=== PATIENT | male | born 1950 ===

== ENCOUNTER 2024-08-29 10:54 | Inpatient (IN) | payer MEDICARE, OTHER, SELFPAY ==
[2024-08-29] VITALS (8 sets, daily range): BP systolic 108–133; BP diastolic 51–70; PULSE 59–60; RESP 12–20; TEMP 36.3–37; O2SAT 93–100; BMI 21.2
--- NOTE | ~2024-08-29 | CT_ITS ---
EXAMINATION: CT HEAD WITHOUT IV CONTRAST HISTORY: Fall on anticoagulation. TECHNIQUE: Unenhanced helical CT of the head was performed per standard departmental protocol. Coronal and sagittal reformats of the head were also evaluated. One or more of the following techniques was used for dose reduction: Automated exposure control, adjustment of the mA and/or kV according to patient size, use of iterative reconstruction technique. DLP: 791 mGy-cm COMPARISON: Comparison is made with the prior examination dated 08/29/2024. FINDINGS: BRAIN: There is diffuse prominence of the ventricular system and cortical sulci, consistent with atrophy. Periventricular and subcortical white matter hypodensities are noted which are nonspecific, but often seen in the setting of small vessel ischemic disease. There is no mass effect or midline shift. No intra- or extra-axial fluid collections are identified. SINUSES: The visualized paranasal sinuses are clear. The mastoid air cells and middle ear cavities are well pneumatized. ORBITS: The visualized orbits are unremarkable. BONES/SOFT TISSUES: The extracranial soft tissues are unremarkable. The calvarium is intact. No suspicious lytic or sclerotic lesions. CT/CT head/brain wo IV con IMPRESSION: No acute intracranial abnormality. Electronically signed by: Ilia Leonard MD 09/01/2024 10:23 AM EDT
--- NOTE | ~2024-08-29 | CT_ITS ---
EXAMINATION: CT HEAD WITHOUT CONTRAST CLINICAL INFORMATION: non focal generalized weakness, unsteady gait COMPARISON: None available. TECHNIQUE: Contiguous axial imaging was performed from the skull base to vertex without intravenous administration of contrast. This CT examination was performed using dose optimization techniques as appropriate, variously including the following: *Automated exposure control *Adjustment of mA and/or kV according to patient size (this includes techniques or standardized protocols for targeted exams where dose is matched to indication/reason for exam; i.e. extremities or head) *Use of iterative reconstruction technique DLP: 652 mGy-cm FINDINGS: There is CSF prominence of the in the inferior posterior cranial fossa just inferior and posterior to the fourth ventricle opening. No acute intracranial hemorrhage, mass effect, midline shift, hydrocephalus or herniation. Prominence of the extra-axial CSF spaces cerebral sulci and ventricles. Bilateral multifocal patchy deep periventricular white matter hypodensity. Burns-white matter differentiation is normal. Sellar/suprasellar region demonstrated no gross masses. Calcified plaques in the cavernous supracavernous segments both ICAs and V4 segments of the vertebral arteries. No air-fluid levels in the included paranasal sinuses. Tympanic cavities and mastoid cells are aerated. CT/CT head/brain wo IV con IMPRESSION: No acute intracranial hemorrhage. Small vessel occlusive disease. Global cerebral atrophy. Atherosclerosis disease. 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 Electronically signed by: Behzad Atkins MD 08/29/2024 03:15 PM EDT
--- NOTE | 2024-08-29 11:15 | ED.PSYCH ---
HPI - Psych General Chief Complaint: Psychiatric Symptoms Stated Complaint: SI ATTEMPT/OD OF ATIVAN LAST NOC,CALM/COOP PER EMS History of Present Illness ED Provider: Edwardo Linares MD HPI Narrative: [age] male self presenting via EMS called for help after he reported that he took numerous Valium tablets. Tells me he was suicidal took this at about 02:00. He tells me took about 40 tablets of 5 mg Valium. Has no other complaints at this time. Relevant PMH: The patient has had ambulation issues for several years at least 3 years undergoing extensive neurologic testing in [place] with a neurologist. To this date they have not received a neurologic diagnosis sounds like they are working with a ?psycho industrial trainer ?as they feel this may be secondary to psychiatric condition and/or medications. He has been walking with a cane and/or walker at home no recent falls but he is sometimes slightly unsteady. Related Data Home Medications ?Medication ?Instructions ?Recorded ?Confirmed allopurinol 300 mg tablet 150 mg PO DAILY 08/29/24 08/30/24 bupropion HCl 300 mg 24 hr tablet, 300 mg PO DAILY 08/29/24 08/29/24 extended release diazepam 5 mg tablet 5 mg PO DAILY PRN Sleep 08/29/24 08/29/24 aripiprazole 5 mg tablet 5 mg PO DAILY 08/30/24 08/30/24 docusate sodium 250 mg capsule 250 mg PO BID PRN Constipation 08/30/24 08/30/24 famotidine 20 mg tablet 20 mg PO BID 08/30/24 08/30/24 hydrochlorothiazide 50 mg tablet 50 mg PO DAILY 08/30/24 08/30/24 propranolol 60 mg capsule,24 60 mg PO DAILY 08/30/24 08/30/24 hr,extended release ropinirole 1 mg tablet 1 mg PO BEDTIME PRN Restless Leg(S) 08/30/24 08/30/24 Allergies Allergy/AdvReac Type Severity Reaction Status Date / Time lactose Allergy Diarrhea Verified 08/29/24 20:32 Penicillins Allergy Unknown Verified 08/29/24 11:10 [facility], [facility] Social History Social History Household Members: Spouse Housing: Apartment Do you presently have visiting nurse or other home services: No Alcohol intake: current Alcohol intake frequency: 0-2 drinks per day Alcohol type: hard liquor Patient Tobacco Use Status: Former Tobacco user Tobacco use type: Cigarette Smoked in Last 30 Days: No e-Cigarette/Vaping Use: Never Used Patient Interested in Nicotine Replacement: No Patient Given Instructions on How to Stop Smoking: No Second Hand Smoke Exposure: No Use of substances other than those prescribed or required for medical reasons: No Currently Displaying Signs/Symptoms of Drug Intoxication Withdrawal: No Have you been hit, kicked, punched, or otherwise hurt by someone within the past year? If so, by whom?: No Do you feel safe in your current relationship?: Yes Is there a partner from a previous relationship who is making you feel unsafe now?: No Are you made to feel afraid or neglected: No Spiritual Healthcare Practices: buddist Advance Directives: No Advance Directives Information Provided: Yes Do you have thoughts of harming others: None Do you have a plan to hurt others: No Plan Recently lost weight without trying: No How much weight loss: Not applicable Eating poorly because of decreased appetite: No Nutrition screen score: 0 Nutrition Risks: No Nutritional Risk Poor oral hygiene: No service: No Sexual orientation: Lesbian/[place]/Homosexual Physical Exam Vital Signs: Vital Signs: Last Vital Signs Temp 98.1 F 08/31/24 08:00 Pulse 68 08/31/24 08:00 Resp 18 08/31/24 08:00 BP 125/69 08/31/24 08:00 Pulse Ox 98 08/31/24 08:00 O2 Del Method Room Air 08/31/24 08:00 BMI result Body Mass Index 21.2 GENERAL: Well appearing. No apparent distress. Alert. HEAD/NECK: Normal to inspection. Neck supple. No cervical lymphadenopathy. EYES: Normal to inspection. Sclera non-icteric. ENMT: External nose normal. RESPIRATORY: Respiratory effort normal. Lungs clear to auscultation bilaterally. CARDIOVASCULAR: Regular rate. Normal rhythm. No murmur. No rubs. GI: Soft, non-tender, non-distended. No rebound or guarding. No masses palpable. No hepatosplenomegaly. SKIN: No jaundice. NEUROLOGICAL: Alert. PSYCHIATRIC: Alert. Appearance appropriate for situation. Attitude cooperative. Occasionally tearful. Endorses suicidal thoughts intentional overdose. Well-kempt clean. OTHER: Comprehensive Neuro exam: Face symmetric, tongue midline, strong symmetric eye closure, pupils symmetric and reactive to light, intact sensation to the face throughout, intact strong face deviation and shoulder shrug. Sensation intact to light touch throughout 5 out of 5 strength in bilateral upper extremities, 5 and 5 strength in lower extremities No gross ataxia of the extremities or trunk. Appearance of a subtle tremor of the head. He is slightly unsteady and requires walker with a slow slightly wide-based gait. Medications Administered Generic Name Dose Route Start Last Admin Trade Name Freq PRN Reason Stop Dose Admin Acetaminophen 650 mg 08/30/24 09:23 08/30/24 10:33 Acetaminophen 325 Mg Tablet PO 650 mg Q6H PRN Administration moderate pain Allopurinol 150 mg 08/30/24 11:30 08/31/24 08:23 Allopurinol 300 Mg Tablet PO 150 mg DAILY MISSY Administration Apixaban 5 mg 08/30/24 21:00 08/31/24 08:23 Apixaban 5 Mg Tablet PO 5 mg BID MISSY Administration Aripiprazole 5 mg 08/30/24 11:45 08/31/24 08:23 Aripiprazole 5 Mg Tablet PO 5 mg DAILY MISSY Administration Bupropion HCl 300 mg 08/30/24 09:30 08/31/24 08:23 Bupropion Hcl Xl 300 Mg Tab.Er.24h PO 300 mg DAILY MISSY Administration Famotidine 20 mg 08/30/24 21:00 08/31/24 08:23 Famotidine 20 Mg Tablet PO 20 mg BID MISSY Administration Hydrochlorothiazide 50 mg 08/31/24 09:00 08/31/24 08:23 Hydrochlorothiazide 50 Mg Tablet PO 50 mg DAILY MISSY Administration Protocol Propranolol HCl 60 mg 08/31/24 09:00 08/31/24 08:24 Propranolol Hcl La 60 Mg Cap.Sa.24h PO 60 mg DAILY MISSY Administration Protocol Discontinued Medications Generic Name Dose Route Start Last Admin Trade Name Freq PRN Reason Stop Dose Admin Cyanocobalamin 1,000 mcg 08/30/24 11:12 08/30/24 13:49 Cyanocobalamin (Vitamin B-12) 1,000 Mcg/Ml Vial IM 08/30/24 11:13 1,000 mcg ONCE ONE Administration Magnesium Oxide 800 mg 08/29/24 12:18 08/29/24 12:32 Magnesium Oxide 400 Mg Tablet PO 08/29/24 12:19 800 mg ONCE ONE Administration Potassium Chloride 40 meq 08/29/24 12:18 08/29/24 12:32 Potassium Chloride Packet 20 Meq Packet PO 08/29/24 12:19 40 meq ONCE ONE Administration Medical Decision Making Medical Decision Making MDM Narrative: Medical Decision Makin-year-old male with suicide attempt. Reports taking 40 tablets of 5 mg Valium at 02:00. He does not appear clinically sedated and I do have some suspicion he may not have taken this. The pill count in the bottle is discrepant with the amount he told me he took. Poison control consult for observation monitoring. Nonspecific intraventricular conduction delay. There was no comparison ECG. Repeat ECG without dynamic interval change. This purported ingestion would qualify as a severe high-risk ingestion with severe life-threatening benzodiazepine overdose Supplemented electrolytes as per poison recommendation. Patient based on timing develop no profound sedation medically cleared at approximately 14:30 Preliminary Favored Differential Diagnosis: Suicidality with suicide attempt, high-risk for suicide, depression, benzodiazepine overdose, among additional considered etiologies Testing Interpreted Independently: ECG : Nonspecific intraventricular conduction delay. No [place] criteriia.. Repeated without change Radiology or Lab testing Results Reviewed: No actionable findings. Positive benzodiazepine Consults: Care team social work behavioral health evaluation. Poison control over the phone through nursing. Independent Historians/External Chart Reviews: EMS. at the bedside Social Determinants of Health Impacting MDM/Planning: Not Applicable Lab Data 08/29/24 11:45 08/31/24 08:05 Labs: Lab Results 08/29/24 08/29/24 Range/Units 11:45 11:51 WBC 5.6 (4.8-10.8) X10*3/uL RBC 3.80 L (4.60-5.80) X10*6/uL Hgb 12.9 L (14.0-18.0) g/dl Hct 37.0 L (42.0-52.0) % MCV 97.4 (80.0-98.0) fL MCH 33.9 H (27.0-33.0) pg MCHC 34.9 (31.0-36.0) g/dl RDW 13.7 (11.0-16.0) % Plt Count 156 L (160-400) X10*3/uL MPV 9.0 L (9.4-12.4) fL Immature Gran % (Auto) 0.5 H (0.0-0.4) % Neut % (Auto) 42.9 L (45-73) % Lymph % (Auto) 33.7 (20-40) % Keith % (Auto) 12.1 H (2-11) % Eos % (Auto) 10.3 H (0-4) % Baso % (Auto) 0.5 (0-2) % Lymph # (Auto) 1.9 (1.2-4.9) X10*3/uL Keith # (Auto) 0.7 (0.1-1.2) X10*3/uL Eos # (Auto) 0.6 H (0.0-0.4) X10*3/uL Baso # (Auto) 0.0 (0.0-0.2) X10*3/uL Abs Immat Gran (auto) 0.03 (0.00-0.03) X10*3/uL Absolute Neuts (auto) 2.4 (2.0-8.3) x10*3/uL Absolute Nucleated RBC 0.000 (0.0-0.012) X10*3/uL Nucleated RBC % (auto) 0.0 (0.0-0.2) /100WBC Sodium 140 (135-145) mmol/L Potassium 3.8 (3.3-5.1) mmol/L Chloride 107 (96-108) mmol/L Carbon Dioxide 27 (22-29) mmol/L Anion Gap 10 L (12-20) BUN 14 (9-16) mg/dL Creatinine 1.28 (0.5-1.4) mg/dL Estim Creat Clear Calc 47.7 Estimated GFR 55 Random Glucose 96 (60-115) mg/dL Calcium 8.4 (8.4-10.2) mg/dL Magnesium 1.8 (1.6-2.6) mg/dL Total Bilirubin 0.4 (0.0-1.0) mg/dL AST 21 (5-37) U/L ALT 12 (0-40) U/L Alkaline Phosphatase 45 (39-117) U/L Total Protein 6.1 L (6.5-8.0) g/dL Albumin 3.3 L (3.5-5.0) g/dL Vitamin B12 < 148 L (200-900) pg/mL Folate 4.0 (> or = 4.0) ng/mL Urine Color Yellow Urine Appearance Clear Urine pH 6.5 (5.0-9.0) Ur Specific [place] 1.010 (1.005-1.025) Urine Protein Negative (Neg-Trace) mg/dL Urine Glucose (UA) Negative (Negative) mg/dL Urine Ketones Negative (Negative) mg/dL Urine Blood Negative (Negative) Urine Nitrite Negative (Negative) Ur Leukocyte Esterase Negative (Negative) Salicylates < 5.0 L (15-30) mg/dL Urine Opiates Screen Not Detected (Not Detect) Ur Buprenorphine Scrn Not Detected (Not Detect) ng/mL Ur Oxycodone Screen Not Detected (Not Detect) ng/mL Urine Methadone Screen Not Detected (Not Detect) ng/mL Urine Fentanyl Screen Not Detected (Not Detect) Acetaminophen < 3 (<30) mcg/mL Ur Barbiturates Screen Not Detected (Not Detect) Ur Phencyclidine Scrn Not Detected (Not Detect) Ur Amphetamines Screen Not Detected (Not Detect) U Benzodiazepines Scrn POSITIVE H (Not Detect) Urine Cocaine Screen Not Detected (Not Detect) U Marijuana (THC) Screen Not Detected (Not Detect) Ethyl Alcohol < 10 mg/dL Critical Care Time Critical Care Time Critical Care Time: Yes Total Critical Care Time: 30 Attestation: ED Critical Care: Authorized and Performed by: Edwardo Linares MD Total critical care time: Approximately 30 Due to a high probability of clinically significant, life threatening deterioration, the patient required my highest level of preparedness to intervene emergently and I personally spent this critical care time directly and personally managing the patient. This critical care time included obtaining a history; examining the patient; pulse oximetry; ordering and review of studies; arranging urgent treatment with development of a management plan; evaluation of patient's response to treatment; frequent reassessment; and, discussions with other providers. This critical care time was performed to assess and manage the high probability of imminent, life-threatening deterioration that could result in multi-organ failure. It was exclusive of separately billable procedures and treating other patients and teaching time. Discharge Plan Discharge Clinical Impression: Suicidal ideation, Intentional diazepam overdose Patient Disposition: Admitted As Inpatient Interventions: [place]-Suicide Risk Severity Scale Last Done: 08/31/24 00:00 Discharge Date/Time: 08/30/24 12:56
--- NOTE | 2024-08-29 11:16 | ECG_ITS ---
Test Reason : ETOH Blood Pressure : */* mmHG Vent. Rate : 61 BPM Atrial Rate : 61 BPM P-R Int : 268 ms QRS Dur : 184 ms QT Int : 478 ms P-R-T Axes : * -68 114 degrees QTcB Int : 481 ms AV dual-paced rhythm with prolonged AV conduction Abnormal ECG No previous ECGs available Referred By: Edwardo Linares Electronically Signed By: Bar Bernard
--- NOTE | 2024-08-29 11:18 | PC.NURSE ---
74 M presents to ED following reportedly consuming around 40, 5mg valium tablets last night. Pt denies HI at this time but states he doesn't want to live anymore. EMS stated says pt has had SI in the past, sees a therapist. Pt has a pacemaker in place and is on eliquis. Pt denies any pain. RR even and unlabored, denies SOB or CP. A+OX4, cooperative.
--- NOTE | 2024-08-29 11:45 | PC.NURSE ---
Spoke to poison control regarding patient treatment plan. Poison control recommends the following: ECG q2h x 3, monitor QRS duration, Monitor for CMS EXPERT depression and respiratory depression, check labs and optimize electrolytes with potassium 4+, magnesium 2+, calcium WNL. Provider notified.
[2024-08-29 11:49] LABS: MANUAL DIFF FLAG NO
--- NOTE | 2024-08-29 11:50 | MHC.EDTECH ---
pt 1 assisted with urinal d/t incontinence when attempting to use urinal by himself. urine and bloodwork collected and sent to lab
[2024-08-29 11:52] LABS: Hematocrit 37.0 % (42.0-52.0); Hemoglobin 12.9 g/dl (14.0-18.0); Imm Gran Abs Auto 0.03 X10*3/uL (0.00-0.03); Imm Gran Pct Auto 0.5 % (0.0-0.4); Lymphocytes Absolute Auto 1.9 X10*3/uL (1.2-4.9); Mean Corpuscular HGB Conc 34.9 g/dl (31.0-36.0); Mean Corpuscular Hemoglobin 33.9 pg (27.0-33.0); Mean Corpuscular Volume 97.4 fL (80.0-98.0); NRBC Abs Auto 0.000 X10*3/uL (0.0-0.012); NRBC Pct Auto 0.0 /100WBC (0.0-0.2); Platelet Count 156 X10*3/uL (160-400); Red Blood Count 3.80 X10*6/uL (4.60-5.80); White Blood Count 5.6 X10*3/uL (4.8-10.8)
[2024-08-29 11:59] LABS: Appearance Urine Clear; Glucose Urine UA Negative (Negative); PH 6.5 (5.0-9.0); Specific Gravity - Urine 1.010 (1.005-1.025)
[2024-08-29 12:06] LABS: Acetaminophen LAB < 3 mcg/mL (<30); Alanine Aminotransferase 12 U/L (0-40); Albumin Level 3.3 g/dL (3.5-5.0); Alkaline Phosphatase 45 U/L (39-117); Anion Gap 10 (12-20); Aspartate Amino Transferase 21 U/L (5-37); Blood Urea Nitrogen 14 mg/dL (9-16); Calcium 8.4 mg/dL (8.4-10.2); Carbon Dioxide 27 mmol/L (22-29); Chloride 107 mmol/L (96-108); Creatinine Clr Calc Pharmacy 47.7; Estimated Glomerular Filt Rate 55; Magnesium 1.8 mg/dL (1.6-2.6); Potassium 3.8 mmol/L (3.3-5.1); Salicylate < 5.0 mg/dL (15-30); Sodium 140 mmol/L (135-145); Total Protein 6.1 g/dL (6.5-8.0)
[2024-08-29 12:09] LABS: Cannabinoid Screen Urine Not Detected (Not Detect)
--- NOTE | 2024-08-29 12:16 | PC.NURSE ---
potassium 3.8, magnesium 1.8. Provider notified.
--- NOTE | 2024-08-29 12:31 | PC.NURSE ---
Pts Kyle took home pt's prescription bottle of diazepam.
[2024-08-29] MEDS: Potassium Chloride Packet 20 MEQ PACKET 40 MEQ PO (12:32)
--- NOTE | 2024-08-29 13:02 | MHC.EDTECH ---
pt urinated 200mL of pale yellow urine into urinal
--- NOTE | 2024-08-29 13:27 | PC.NURSE ---
Repeat EKG preformed and given to MD Carter.
--- NOTE | 2024-08-29 13:30 | ECG_ITS ---
Test Reason : QTC MONITORING Blood Pressure : */* mmHG Vent. Rate : 60 BPM Atrial Rate : 60 BPM P-R Int : 266 ms QRS Dur : 160 ms QT Int : 452 ms P-R-T Axes : -29 -66 142 degrees QTcB Int : 452 ms AV dual-paced rhythm with prolonged AV conduction Abnormal ECG When compared with ECG of 29-Aug-2024 11:27, No significant change was found Referred By: Edwardo Linares Electronically Signed By: Bar Bernard
--- NOTE | 2024-08-29 14:16 | MHC.EDTECH ---
Ambulation trial attempted, pt took two steps out of bed with one hand holding onto bed rail for assistance then became very unsteady. Pt was directed back to bed safely. Pt did state he does have moments of unsteadiness at baseline and does use mobility devices at home (walker, cane, rollator) when needed, RN was made aware.
--- NOTE | 2024-08-29 14:29 | PC.NURSE ---
Ambulation trial attempted by airframe technical officer. Pt was not able to walk and was unsteady when trying to stand up. Provider notified.
--- NOTE | 2024-08-29 14:44 | MHC.EDTECH ---
Pt attempted to use urinal independently, pt accidentally spilled urine on himself, full bed bath given, new hospital gown, linen, and warm blankets given. Pt placed back on soa integration developer resting comfortably in bed.
--- NOTE | 2024-08-29 14:50 | MHC.EDTECH ---
Pt transported to CT scan 1:1 still provided during scan
--- NOTE | 2024-08-29 15:10 | MHC.EDTECH ---
Pt assisted with bedpan for bowel movement. Kelly care given. Pt resting in bed
[2024-08-29 15:17] LABS: Folate 4.0 ng/mL (> or = 4.0); Vitamin B12 < 148 pg/mL (200-900)
--- NOTE | 2024-08-29 15:57 | PC.NURSE ---
CARE team at bedside
--- NOTE | 2024-08-29 16:47 | PC.NURSE ---
pt ambulated to bathroom with walker, a little unsteady, 1 assist. Pt was a little shaky but did ok.
[2024-08-30 06:00] VITALS: BP 119/59; PULSE 60; RESP 16; TEMP 36.2; O2SAT 100
[2024-08-30] MEDS: buPROPion HCl XL 300 MG TAB.ER.24H PO (10:33)
--- NOTE | 2024-08-30 11:07 | PHA.MEDREC ---
Addendum entered by Mac Solorzano [facility] 08/30/24 11:45: MED REC CHECKED BY [facility] Original Note: Pharmacy Consult ? Medication Reconciliation Pharmacy has completed the medication reconciliation. Spoke with pt, who was very pleasant, about med list brought in from home and pt stated that is a newer list that should be up to date . Pt confirmed he takes Eliquis 5mg tabs BID. Pt confirmed he is now taking the Ariprazole 5mg tab QD. Pt not sure if he still takes Diazepam or Ropinirole; kept them in med rec PRN since documented on pt med list. Pt states his Docusate 250mg tabs are BID PRN constipation.
[2024-08-30 12:00] VITALS: BP 116/58; PULSE 60; RESP 18; TEMP 36.7; O2SAT 98
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
--- NOTE | 2024-08-30 14:24 | PC.ADMIT ---
74 year old white male admitted from our ED at 1200 via wheelchair accompanied by his for a short term geriatric psych stay for Major Depression and Suicide Attempt to room 183-1. He is alert and oriented x4. He overdosed on Valium because he is overwhelmed by his physical problems with ambulation and self care issues. He is a poor historian, has a pacemaker for , Fainting while lying down. He did sign a CV and all of his SOHAM'S today. acid recovery operator completed. He has a faint rash on his back which he has a steroidal cream BID ordered at home, otherwise his skin is clear and intact. He is Lactose intolerant and his is willing to order him food from the [employer] for some meals because he is not too fond of the food here. He is also allergic to Penicillins. When asked about the survival of the suicide attempt he stated, There is part of me that is disappointed and part of me that is not, after his spouse left the room. He is incontinent of bowel and bladder and uses a walker or cane for ambulation when he is up to it. His weight was 147.2 pounds and his height is 5'11 . Vital signs 97.1-18-60-116/58 and O2 Sat 98% on room air. On arrival patient had an IV in his left arm which was removed. Nikki Mariscal NP verified orders. A Vit B12 injection was also given to him as ordered.
[2024-08-30 14:28] VITALS: BMI 20.5
[2024-08-30 20:00] VITALS: BP 138/63; PULSE 61; RESP 16; TEMP 36.6; O2SAT 95
[2024-08-31 07:00] VITALS: BMI 20.5
[2024-08-31 08:00] VITALS: BP 125/69; PULSE 68; RESP 18; TEMP 36.7; O2SAT 98
[2024-08-31 08:20] LABS: Hemoglobin A1C 143.3269 umol/L; Total Hemoglobin (HGBA1C) 3783.7500 umol/L
[2024-08-31] MEDS: buPROPion HCl XL 300 MG TAB.ER.24H PO (08:23)
[2024-08-31] MEDS: Propranolol HCL LA 60 MG CAP.SA.24H PO (08:24)
[2024-08-31 08:36] LABS: Alanine Aminotransferase 17 U/L (0-40); Albumin Level 3.9 g/dL (3.5-5.0); Alkaline Phosphatase 50 U/L (39-117); Anion Gap 10 (12-20); Aspartate Amino Transferase 21 U/L (5-37); Blood Urea Nitrogen 17 mg/dL (9-16); Calcium 9.2 mg/dL (8.4-10.2); Carbon Dioxide 26 mmol/L (22-29); Chloride 109 mmol/L (96-108); Cholesterol 199 mg/dL (<200); Creatinine Clr Calc Pharmacy 46.7; Estimated Glomerular Filt Rate 55; HDL Cholesterol 40 mg/dL (>40); Magnesium 2.0 mg/dL (1.6-2.6); Potassium 4.0 mmol/L (3.3-5.1); Sodium 141 mmol/L (135-145); Total Protein 7.1 g/dL (6.5-8.0); Triglycerides 173 mg/dL (<150)
[2024-08-31 08:51] LABS: Thyroid Stimulating Hormone 3.04 uIU/mL (0.32-4.0)
[2024-08-31 09:03] LABS: Folate 4.6 ng/mL (> or = 4.0)
--- NOTE | 2024-08-31 10:11 | P.CONHOSP_ITS ---
History of Present Illness Data of Consult Service Date: 08/31/24 Primary Care Provider: Letty Durant MD [facility] Reason for consult: Medical H&P 74-year-old male with a past medical history of complete heart block with a permanent pacemaker in 2017, nephrolithiasis, unspecified neurological disorder, paroxysmal AFib, HTN, Tremors presented to the ED after reportedly ingesting 40 tablets of 5 mg of Valium. After further investigation by ED staff, pill count in the bottle did not align with the number of pills he reported to have ingested. Ingesting this amount of Valium would qualify as a severe high risk ingestion with severe life-threatening overdose, poison control was contacted inpatient was monitored. His labs were within normal limits CBC and BMP within normal limits. His sedation level was monitored. EKG demonstrates a nonspecific intraventricular conduction delay, he does have a permanent pacemaker for complete heart block. On exam he has no concerns. He denies any shortness of breath or chest pain. Denies any dizziness lightheadedness or any other concerning symptoms. He is not sedated on exam, alert and answering questions appropriately. He is lying in bed resting in no apparent distress. Review of Systems 2 Review of Systems: Denies any shortness of breath, chest pain, dizziness, lightheadedness, abdominal pain or discomfort, nausea vomiting or diarrhea PMFSH Social History Household Members: Spouse Housing: Apartment Do you presently have visiting nurse or other home services: No Alcohol intake: current Alcohol intake frequency: 0-2 drinks per day Alcohol type: hard liquor Patient Tobacco Use Status: Former Tobacco user Tobacco use type: Cigarette Smoked in Last 30 Days: No e-Cigarette/Vaping Use: Never Used Patient Interested in Nicotine Replacement: No Patient Given Instructions on How to Stop Smoking: No Second Hand Smoke Exposure: No Use of substances other than those prescribed or required for medical reasons: No Currently Displaying Signs/Symptoms of Drug Intoxication Withdrawal: No Have you been hit, kicked, punched, or otherwise hurt by someone within the past year? If so, by whom?: No Do you feel safe in your current relationship?: Yes Is there a partner from a previous relationship who is making you feel unsafe now?: No Are you made to feel afraid or neglected: No Spiritual Healthcare Practices: buddist Advance Directives: No Advance Directives Information Provided: Yes Do you have thoughts of harming others: None Do you have a plan to hurt others: No Plan Recently lost weight without trying: No How much weight loss: Not applicable Eating poorly because of decreased appetite: No Nutrition screen score: 0 Nutrition Risks: No Nutritional Risk Poor oral hygiene: No service: No Sexual orientation: Lesbian/Escobedo/Homosexual Meds Allergies Allergy/AdvReac Type Severity Reaction Status Date / Time lactose Allergy Diarrhea Verified 08/29/24 20:32 Penicillins Allergy Unknown Verified 08/29/24 11:10 Active Medications: Current Medications Acetaminophen (Acetaminophen 325 Mg Tablet) 650 mg PO Q6H PRN PRN Reason: moderate pain Last Admin: 08/30/24 10:33 Dose: 650 mg Al Hydroxide/Mg Hydroxide (Magnesium Hydrox/Alum Hydrox 30 Ml Oral.Susp) 30 ml PO Q6H PRN PRN Reason: Heartburn/Nausea Allopurinol (Allopurinol 300 Mg Tablet) 150 mg PO DAILY [facility] Last Admin: 08/31/24 08:23 Dose: 150 mg Apixaban (Apixaban 5 Mg Tablet) 5 mg PO BID [facility] Last Admin: 08/31/24 08:23 Dose: 5 mg Aripiprazole (Aripiprazole 5 Mg Tablet) 5 mg PO DAILY [facility] Last Admin: 08/31/24 08:23 Dose: 5 mg Bupropion HCl (Bupropion Hcl Xl 300 Mg Tab.Er.24h) 300 mg PO DAILY [facility] Last Admin: 08/31/24 08:23 Dose: 300 mg Diazepam (Diazepam 5 Mg Tablet) 5 mg PO BEDTIME PRN PRN Reason: Sleep Docusate Sodium (Docusate Sodium 100 Mg/10 Ml Liquid) 250 mg PO BID PRN PRN Reason: Constipation Famotidine (Famotidine 20 Mg Tablet) 20 mg PO BID [facility] Last Admin: 08/31/24 08:23 Dose: 20 mg Hydrochlorothiazide (Hydrochlorothiazide 50 Mg Tablet) 50 mg PO DAILY [facility]; Protocol Last Admin: 08/31/24 08:23 Dose: 50 mg Magnesium Hydroxide (Milk Of Magnesia 30 Ml Oral.Susp) 30 ml PO DAILY PRN PRN Reason: Constipation Propranolol HCl (Propranolol Hcl La 60 Mg Cap.Sa.24h) 60 mg PO DAILY [facility]; Protocol Last Admin: 08/31/24 08:24 Dose: 60 mg Ropinirole HCl (Ropinirole Hcl 1 Mg Tablet) 1 mg PO BEDTIME PRN PRN Reason: Restless Leg(S) Trazodone HCl (Trazodone Hcl 50 Mg Tablet) 50 mg PO BEDTIME PRN PRN Reason: Insomnia Home Medications ?Medication ?Instructions ?Recorded ?Confirmed ?Last Taken ?Type allopurinol 300 mg tablet 150 mg PO DAILY 08/29/2411/16 Unknown History bupropion HCl 300 mg 24 hr tablet, 300 mg PO DAILY 10/1608/29/24 Unknown History extended release diazepam 5 mg tablet 5 mg PO DAILY PRN Sleep 10/1608/29/24 Unknown History aripiprazole 5 mg tablet 5 mg PO DAILY 08/30/2408/30 Unknown History docusate sodium 250 mg capsule 250 mg PO BID PRN Const ipation 08/30/24 08/30/24 Unknown History famotidine 20 mg tablet 20 mg PO BID 08/30/24 Unknown History hydrochlorothiazide 50 mg tablet 50 mg PO DAILY 08/30/24 Unknown History propranolol 60 mg capsule,24 60 mg PO DAILY 08/30/24 0 08/30/24 Unknown History hr,extended release ropinirole 1 mg tablet 1 mg PO BEDTIME PRN Restless Leg(S) 08/30/24 08/30/24 Unknown History Physical Exam 2 Vital Signs and Narrative: Vital Signs: Last Vital Signs Temp 98.1 F 08/31/24 08:00 Pulse 68 08/31/24 08:00 Resp 18 08/31/24 08:00 BP 125/69 08/31/24 08:00 Pulse Ox 98 08/31/24 08:00 O2 Del Method Room Air 08/31/24 08:00 BMI result Body Mass Index 20.5 Alert and oriented X3, able to give good history. Appears Frail. Neuro: CN II-X11 intact, no deficits, visual acuity intact EYES: PERRLA, EOM intact ENT: Hearing intact, lips moist Cardiac: S1 S2 RRR, No ectopy Pulmonary: Lungs clear to auscultation, No increased WOB. Abdominal: BS active in all 4 quadrants, no guarding or tenderness MSK: Strength 5/5 upper and lower extremities : Deferred Extremities: No edema in lower extremities. No calf tenderness. Gait steady with walker Psych: Mood stable, Quiet and cooperative. Skin: Warm and dry, Intact Results Labs 08/29/24 11:45 08/31/24 08:05 Labs: Laboratory Results - last 24 hr 08/31/24 08:05 Anion Gap 10 L Estim Creat Clear Calc 46.7 Estimated GFR 55 Random Glucose 103 Estimat Average Glucose 114 Hemoglobin A1c % 5.6 Calcium 9.2 D Magnesium 2.0 Total Bilirubin 0.4 AST 21 ALT 17 Alkaline Phosphatase 50 Total Protein 7.1 Albumin 3.9 Triglycerides 173 H Cholesterol 199 LDL Cholesterol, Calc 125 H HDL Cholesterol 40 L Folate 4.6 TSH 3.04 Assessment and Plan (1) Paroxysmal A-fib: Status: Acute Plan 74-year-old male with past medical history of depression, paroxysmal AFib, history of complete heart block now with permanent pacemaker, hypertension, functional neurological disorder, tremors, degenerative disc disease, chronic lower back pain and history of nephrolithiasis was admitted to the ED at [facility] after reportedly ingesting 40 tablets of 5 mg of Valium. Noted that the pill count in the bottle did not match with the amount he reportedly ingested. He is admitted to inpatient [facility] for continued care. Depression/SI with overdose of Valium Plan per psychiatric team Paroxysmal AFib Not on rate control medication On Eliquis Permanent pacemaker implanted 2016 for complete heart block Followed by [facility] Hypertension Continue propranolol Heart rate and blood pressure is stable Functional neurological disorder/tremors Negative workup for Parkinson's Improve with PT. Assist with ambulation as needed Degenerative disc disease, chronic lower back pain Tylenol as needed for pain Notify provider with any issues or concerns Nephrolithiasis Continues on hydrochlorothiazide and allopurinol for this Has had three previous procedures for stone removal. Thank you for allowing me to participate in the care of this patient. Will follow as needed. Please reconsult of any acute concerns or issues arise
[2024-08-31 11:49] LABS: Iron 97 mcg/dL (45-160); Percent Iron Saturation 47 % (15-50); Total Iron Binding Capacity 207 mcg/dL (228-428); Unsaturated Iron Binding 110 ug/dL
[2024-08-31 13:42] VITALS: PULSE 70; O2SAT 95
[2024-08-31 20:00] VITALS: BP 118/58; PULSE 60; RESP 18; TEMP 36.8; O2SAT 95
--- NOTE | 2024-08-31 21:01 | P.PNPSI_ITS ---
Subjective Subjective Date of Service: 08/31/24 Reason For Visit: SA Subjective Notes: Conditional Voluntary Interim History: Pt slept through the night. He reports feeling tired in the morning. this commercial real estate underwriter up dated him on conversation with his OP prescriber, Quinton Byrne. We discussed starting a new antidepressant, Lexapro, continuing wellbutrin and abilify. Mental Status Exam Mental Status Exam Narrative: Appearance: wearing hospital gown, fair hygine, sitting, mask like facial expression, neck tremor, in NAD Behavior: cooperative Psychomotor: mild resting tremor bilat. ambulating with walker Speech:clear, decrease verbal output, spontaneous TP: mostly linear TC: feeling depressed, hopeless Mood: depressed Affect: constricted SI: passive but no plan or intent HI: none VH/AH: none Delusions: no overt signs Insight/judgment: poor x 2. Memory/cog: alert, oriented to place, month, year and situation. pending MOCA/ACL. Diagnostics Vital Signs (24Hr): Vital Signs - 24 hr 08/31/24 08:00 08/31/24 13:42 08/31/24 20:00 Temperature 98.1 F 98.2 F Pulse Rate 68 70 60 Respiratory Rate 18 18 Blood Pressure 125/69 118/58 L Pulse Oximetry 98 95 95 Oxygen Delivery Method Room Air Room Air BMI result Body Mass Index 20.5 Labs 08/29/24 11:45 08/31/24 08:05 Labs: Laboratory Results - last 48 hr 08/31/24 08:05 Sodium 141 Potassium 4.0 Chloride 109 H Carbon Dioxide 26 Anion Gap 10 L BUN 17 H Creatinine 1.27 Estim Creat Clear Calc 46.7 Estimated GFR 55 Random Glucose 103 Estimat Average Glucose 114 Hemoglobin A1c % 5.6 Calcium 9.2 D Magnesium 2.0 Iron 97 TIBC 207 L % Saturation 47 Unsat Iron Binding 110 Total Bilirubin 0.4 AST 21 ALT 17 Alkaline Phosphatase 50 Total Protein 7.1 Albumin 3.9 Triglycerides 173 H Cholesterol 199 LDL Cholesterol, Calc 125 H HDL Cholesterol 40 L 25-OH Vitamin D Total 34.7 Folate 4.6 TSH 3.04 Imaging Radiology Impressions: ITS Impressions Head CT 08/29/24 14:46 IMPRESSION: No acute intracranial hemorrhage. Small vessel occlusive disease. Global cerebral atrophy. Atherosclerosis disease. 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 Electronically signed by: Behzad Atkins MD 08/29/2024 03:15 PM EDT RP Medications Medications Current Medications Acetaminophen (Acetaminophen 325 Mg Tablet) 650 mg PO Q6H PRN PRN Reason: moderate pain Last Admin: 08/30/24 10:33 Dose: 650 mg Al Hydroxide/Mg Hydroxide (Magnesium Hydrox/Alum Hydrox 30 Ml Oral.Susp) 30 ml PO Q6H PRN PRN Reason: Heartburn/Nausea Allopurinol (Allopurinol 300 Mg Tablet) 150 mg PO DAILY [facility] Last Admin: 08/31/24 08:23 Dose: 150 mg Apixaban (Apixaban 5 Mg Tablet) 5 mg PO BID [facility] Last Admin: 08/31/24 20:36 Dose: 5 mg Aripiprazole (Aripiprazole 5 Mg Tablet) 5 mg PO DAILY [facility] Last Admin: 08/31/24 08:23 Dose: 5 mg Bupropion HCl (Bupropion Hcl Xl 300 Mg Tab.Er.24h) 300 mg PO DAILY [facility] Last Admin: 08/31/24 08:23 Dose: 300 mg Cyanocobalamin (Cyanocobalamin (Vitamin B-12) 1,000 Mcg/Ml Vial) 1,000 mcg IM Q7D [facility] Stop: 09/27/24 07:01 Diazepam (Diazepam 5 Mg Tablet) 5 mg PO BEDTIME PRN PRN Reason: Sleep Docusate Sodium (Docusate Sodium 100 Mg/10 Ml Liquid) 250 mg PO BID PRN PRN Reason: Constipation Escitalopram Oxalate (Escitalopram Oxalate 10 Mg Tablet) 10 mg PO DAILY [facility] Last Admin: 08/31/24 11:24 Dose: 10 mg Famotidine (Famotidine 20 Mg Tablet) 20 mg PO BID [facility] Last Admin: 08/31/24 20:36 Dose: 20 mg Hydrochlorothiazide (Hydrochlorothiazide 50 Mg Tablet) 50 mg PO DAILY [facility]; Protocol Last Admin: 08/31/24 08:23 Dose: 50 mg Magnesium Hydroxide (Milk Of Magnesia 30 Ml Oral.Susp) 30 ml PO DAILY PRN PRN Reason: Constipation Propranolol HCl (Propranolol Hcl La 60 Mg Cap.Sa.24h) 60 mg PO DAILY [facility]; Protocol Last Admin: 08/31/24 08:24 Dose: 60 mg Ropinirole HCl (Ropinirole Hcl 1 Mg Tablet) 1 mg PO BEDTIME PRN PRN Reason: Restless Leg(S) Trazodone HCl (Trazodone Hcl 50 Mg Tablet) 50 mg PO BEDTIME PRN PRN Reason: Insomnia Allergies Allergies Allergy/AdvReac Type Severity Reaction Status Date / Time lactose Allergy Diarrhea Verified 08/29/24 20:32 Penicillins Allergy Unknown Verified 08/29/24 11:10 Assessment & Plan Assessment & Plan (1) Major depressive disorder, recurrent severe without psychotic features: Status: Acute Code(s): F33.2 - Major depressive disorder, recurrent severe without psychotic features Plan Mr. Saenz is a 74 year-old male with hx of depression who was brought via EMS after intentional OD on valium. Pt had reported taking 40 tablets of 5mg of valium. However, he did not have any signs of sedation or somnolence, nor further medical complications. Utox was positive for diazepam. Noted in the ED to have low B12 146, started on cyanocobalamine 1000mgc IM qweekly for 4 weeks. He has had a number of movement changes, including neck and hand tremors, frequent falls for the past 4 years. He has been for several years on wellbutrin and abilify. We discussed starting lexapro 10mg po daily and continuing wellbutrin 300mg po daily and abilify 5mg po daily. PLAN 1. continue tx. first dose of lexapro today. Reason for continued inpatient stay Substantial Risk for: inability to function Time Spent With Patient Time: Total time managing care of this patient today ____ minutes.
[2024-09-01 07:48] LABS: Glucose, Whole Blood 113 mg/dL (60-115)
--- NOTE | 2024-09-01 07:56 | PM.EVENT ---
Event Note Date of Service: 09/01/24 Time Spent With Patient Time: Total time managing care of this patient today ____ minutes.
[2024-09-01 08:00] VITALS: BP 142/59; PULSE 64; RESP 18; TEMP 36.1; O2SAT 99
--- NOTE | 2024-09-01 08:34 | PC.NURSE ---
Bharathi Saenz was found sitting on bathroom floor by [facility] Zeinab Romeo. It was unwitnessed fall and rapid response was called. Patient was assessed head to toe, by this RN and Dr. Alvarado. Also present was clinical coordinator Shazia Davis, Star Nicholas, Bibi Contreras and RN Pilar Peoples. Patient has no obvious signs of trauma, is AxOx4, PERRLA, VS paced rhythm 60 bpm, on Eliquis, BP 123/60, SpO2 96% on room air, RR 16 bpm. Blood glucos 113 mg/dL. Per patient report, he got up to go pee and forgot to use his walker, he felt unsteady and then fell to floor without head strike or LOC. Patient denies pain or dizziness. A routine head CT was ordered. patients physician Sirisha Mariscal was updated. patients Kyle France was updated.
--- NOTE | 2024-09-01 09:18 | P.PNIM_ITS ---
Subjective Subjective Date of Service: 09/01/24 Interval History: Patient was found sitting on bathroom floor. fall was unwitnessed and rapid response was called. No obvious signs of trauma on exam. Denies hitting his head, Patient denies pain or dizziness. Head CT performed with no acute intracranial abnormalities. On exam he is awake and alert, ambulating at baseline. Denies any joint pain, back pain. No visible injuries. His vitals have been stable. Review of Systems Denies any shortness of breath, chest pain, dizziness, lightheadedness, abdominal pain or discomfort, nausea vomiting or diarrhea Physical Exam 2 Vital Signs: Vital Signs: Last Vital Signs Temp 98.2 F 08/31/24 20:00 Pulse 60 08/31/24 20:00 Resp 18 08/31/24 20:00 BP 118/58 L 08/31/24 20:00 Pulse Ox 95 08/31/24 20:00 O2 Del Method Room Air 08/31/24 20:00 BMI result Body Mass Index 20.5 CONST: Alert and oriented, in NAD. Well nourished HEENT: Normocephalic, atraumatic, MMM, Eyes clear, Neck supple RESP: Lungs clear, RRR even and regular HEART:,RRR, S1, S2. No murmur, no edema GI:Abdomen Soft NT, ND. + BS times four :Deferred SKIN: Warm dry and intact, no visible lesions or rashes NEURO:CN II-XII Intact bilaterally, Sensation intact. Speech clear. Tremors continue, denies any paresthesias PSYCH: Normal affect Musculoskeletal: Full range of motion of bilateral arms and legs, no pain with palpation to any joint. Gait at baseline. No pain with palpation to spine Objective Data Active Medications Acetaminophen (Acetaminophen 325 Mg Tablet) 650 mg PO Q6H PRN PRN Reason: moderate pain Last Admin: 08/30/24 10:33 Dose: 650 mg Documented By: MATHEW Al Hydroxide/Mg Hydroxide (Magnesium Hydrox/Alum Hydrox 30 Ml Oral.Susp) 30 ml PO Q6H PRN PRN Reason: Heartburn/Nausea Allopurinol (Allopurinol 300 Mg Tablet) 150 mg PO DAILY [facility] Last Admin: 08/31/24 08:23 Dose: 150 mg Documented By: ARMIN Apixaban (Apixaban 5 Mg Tablet) 5 mg PO BID [facility] Last Admin: 08/31/24 20:36 Dose: 5 mg Documented By: JANAY Aripiprazole (Aripiprazole 5 Mg Tablet) 5 mg PO DAILY [facility] Last Admin: 08/31/24 08:23 Dose: 5 mg Documented By: ARMIN Bupropion HCl (Bupropion Hcl Xl 300 Mg Tab.Er.24h) 300 mg PO DAILY [facility] Last Admin: 08/31/24 08:23 Dose: 300 mg Documented By: ARMIN Cyanocobalamin (Cyanocobalamin (Vitamin B-12) 1,000 Mcg/Ml Vial) 1,000 mcg IM Q7D [facility] Stop: 09/27/24 07:01 Diazepam (Diazepam 5 Mg Tablet) 5 mg PO BEDTIME PRN PRN Reason: Sleep Docusate Sodium (Docusate Sodium 100 Mg/10 Ml Liquid) 250 mg PO BID PRN PRN Reason: Constipation Escitalopram Oxalate (Escitalopram Oxalate 10 Mg Tablet) 10 mg PO DAILY [facility] Last Admin: 08/31/24 11:24 Dose: 10 mg Documented By: ARMIN Famotidine (Famotidine 20 Mg Tablet) 20 mg PO BID [facility] Last Admin: 08/31/24 20:36 Dose: 20 mg Documented By: JANAY Hydrochlorothiazide (Hydrochlorothiazide 50 Mg Tablet) 50 mg PO DAILY [facility]; Protocol Last Admin: 08/31/24 08:23 Dose: 50 mg Documented By: ARMIN Magnesium Hydroxide (Milk Of Magnesia 30 Ml Oral.Susp) 30 ml PO DAILY PRN PRN Reason: Constipation Propranolol HCl (Propranolol Hcl La 60 Mg Cap.Sa.24h) 60 mg PO DAILY [facility]; Protocol Last Admin: 08/31/24 08:24 Dose: 60 mg Documented By: ARMIN Ropinirole HCl (Ropinirole Hcl 1 Mg Tablet) 1 mg PO BEDTIME PRN PRN Reason: Restless Leg(S) Trazodone HCl (Trazodone Hcl 50 Mg Tablet) 50 mg PO BEDTIME PRN PRN Reason: Insomnia Last Admin: 09/01/24 00:43 Dose: 50 mg Documented By: JANAY Labs 08/29/24 11:45 08/31/24 08:05 Labs: Laboratory Results - last 24 hr 08/31/24 09/01/24 08:05 07:44 POC Glucose 113 Iron 97 TIBC 207 L % Saturation 47 Unsat Iron Binding 110 25-OH Vitamin D Total 34.7 Assessment and Plan (1) Unwitnessed fall: Status: Acute Plan Depression/SI with overdose of Valium Plan per psychiatric team Fall without injury No evidence of injury on exam, patient at baseline CT head negative, no visible injuries Paroxysmal AFib Not on rate control medication On Eliquis Permanent pacemaker implanted 2016 for complete heart block Followed by [facility] Cardiology Hypertension Continue propranolol Heart rate and blood pressure is stable Functional neurological disorder/tremors Negative workup for Parkinson's. Followed by a neuro psychiatrist in [place] Improved with PT. Assist with ambulation as needed Degenerative disc disease, chronic lower back pain Tylenol as needed for pain Notify provider with any issues or concerns Nephrolithiasis Continue hydrochlorothiazide and allopurinol Has had three previous procedures for stone removal Quality Stroke Does the patient have a stroke diagnosis?: No VTE Prior VTE?: No VTE Risk Level:: Medical - low VTE Device Contraindication: Treatment Not Indicated VTE Drug Contraindication: Treatment Not Indicated
[2024-09-01 09:45] VITALS: BP 142/59; PULSE 64; RESP 18; TEMP 2.4; TEMP 36.4; O2SAT 99
[2024-09-01] MEDS: Propranolol HCL LA 60 MG CAP.SA.24H PO (09:54)
[2024-09-01] MEDS: buPROPion HCl XL 300 MG TAB.ER.24H PO (09:54)
--- NOTE | 2024-09-01 17:17 | HO.PSYCHPN ---
Subjective Subjective Date of Service: 09/01/24 Reason For Visit: SA Subjective Notes: Conditional Voluntary Interim History: Pt reports sleeping through the night. He denies plan or intent to end his life. He does report feeling very depressed. He is more optimistic. He has been to groups today. He is taking medications as prescribed. Note retropulsion when attempting to get up of couch. No psychosis/delusions. Review of Systems Review of Systems Denies any shortness of breath, chest pain, dizziness, lightheadedness, abdominal pain or discomfort, nausea vomiting or diarrhea Mental Status Exam Mental Status Exam Narrative: Appearance: wearing hospital gown, fair hygine, sitting, mask like facial expression, neck tremor, in NAD Behavior: cooperative Psychomotor: mild resting tremor bilat. ambulating with walker Speech:clear, decrease verbal output, spontaneous TP: mostly linear TC: feeling depressed, hopeless Mood: depressed Affect: constricted SI: passive but no plan or intent HI: none VH/AH: none Delusions: no overt signs Insight/judgment: poor x 2. Memory/cog: alert, oriented to place, month, year and situation. pending MOCA/ACL. Diagnostics Vital Signs (24Hr): Vital Signs - 24 hr 08/31/24 20:00 09/01/24 08:00 09/01/24 09:45 Temperature 98.2 F 97 F 36.4 F L Pulse Rate 60 64 64 Respiratory Rate 18 18 18 Blood Pressure 118/58 L 142/59 H 142/59 H Pulse Oximetry 95 99 99 Oxygen Delivery Method Room Air Room Air Room Air BMI result Body Mass Index 20.5 Labs 08/29/24 11:45 08/31/24 08:05 Labs: Laboratory Results - last 48 hr 08/31/24 09/01/24 08:05 07:44 Sodium 141 Potassium 4.0 Chloride 109 H Carbon Dioxide 26 Anion Gap 10 L BUN 17 H Creatinine 1.27 Estim Creat Clear Calc 46.7 Estimated GFR 55 POC Glucose 113 Random Glucose 103 Estimat Average Glucose 114 Hemoglobin A1c % 5.6 Calcium 9.2 D Magnesium 2.0 Iron 97 TIBC 207 L % Saturation 47 Unsat Iron Binding 110 Total Bilirubin 0.4 AST 21 ALT 17 Alkaline Phosphatase 50 Total Protein 7.1 Albumin 3.9 Triglycerides 173 H Cholesterol 199 LDL Cholesterol, Calc 125 H HDL Cholesterol 40 L 25-OH Vitamin D Total 34.7 Folate 4.6 TSH 3.04 Imaging Radiology Impressions: ITS Impressions Head CT 08/29/24 14:46 IMPRESSION: No acute intracranial hemorrhage. Small vessel occlusive disease. Global cerebral atrophy. Atherosclerosis disease. 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 Electronically signed by: Behzad Atkins MD 08/29/2024 03:15 PM EDT RP Head CT 09/01/24 09:39 IMPRESSION: No acute intracranial abnormality. Electronically signed by: Ilia Leonard MD 09/01/2024 10:23 AM EDT RP Medications Medications Current Medications Acetaminophen (Acetaminophen 325 Mg Tablet) 650 mg PO Q6H PRN PRN Reason: moderate pain Last Admin: 08/30/24 10:33 Dose: 650 mg Al Hydroxide/Mg Hydroxide (Magnesium Hydrox/Alum Hydrox 30 Ml Oral.Susp) 30 ml PO Q6H PRN PRN Reason: Heartburn/Nausea Allopurinol (Allopurinol 300 Mg Tablet) 150 mg PO DAILY [facility] Last Admin: 09/01/24 09:56 Dose: 150 mg Apixaban (Apixaban 5 Mg Tablet) 5 mg PO BID [facility] Last Admin: 09/01/24 09:54 Dose: 5 mg Aripiprazole (Aripiprazole 5 Mg Tablet) 5 mg PO DAILY [facility] Last Admin: 09/01/24 09:54 Dose: 5 mg Bupropion HCl (Bupropion Hcl Xl 300 Mg Tab.Er.24h) 300 mg PO DAILY [facility] Last Admin: 09/01/24 09:54 Dose: 300 mg Cyanocobalamin (Cyanocobalamin (Vitamin B-12) 1,000 Mcg/Ml Vial) 1,000 mcg IM Q7D [facility] Stop: 09/27/24 07:01 Diazepam (Diazepam 5 Mg Tablet) 5 mg PO BEDTIME PRN PRN Reason: Sleep Docusate Sodium (Docusate Sodium 100 Mg/10 Ml Liquid) 250 mg PO BID PRN PRN Reason: Constipation Escitalopram Oxalate (Escitalopram Oxalate 10 Mg Tablet) 10 mg PO DAILY [facility] Last Admin: 09/01/24 09:55 Dose: 10 mg Famotidine (Famotidine 20 Mg Tablet) 20 mg PO BID [facility] Last Admin: 09/01/24 09:56 Dose: 20 mg Hydrochlorothiazide (Hydrochlorothiazide 50 Mg Tablet) 50 mg PO DAILY [facility]; Protocol Last Admin: 09/01/24 09:55 Dose: 50 mg Magnesium Hydroxide (Milk Of Magnesia 30 Ml Oral.Susp) 30 ml PO DAILY PRN PRN Reason: Constipation Propranolol HCl (Propranolol Hcl La 60 Mg Cap.Sa.24h) 60 mg PO DAILY [facility]; Protocol Last Admin: 09/01/24 09:54 Dose: 60 mg Ropinirole HCl (Ropinirole Hcl 1 Mg Tablet) 1 mg PO BEDTIME PRN PRN Reason: Restless Leg(S) Trazodone HCl (Trazodone Hcl 50 Mg Tablet) 50 mg PO BEDTIME PRN PRN Reason: Insomnia Last Admin: 09/01/24 00:43 Dose: 50 mg Allergies Allergies Allergy/AdvReac Type Severity Reaction Status Date / Time lactose Allergy Diarrhea Verified 08/29/24 20:32 Penicillins Allergy Unknown Verified 08/29/24 11:10 Assessment & Plan Assessment & Plan (1) Major depressive disorder, recurrent severe without psychotic features: Status: Acute Code(s): F33.2 - Major depressive disorder, recurrent severe without psychotic features Plan Mr. Saenz is a 74 year-old male with hx of depression who was brought via EMS after intentional OD on valium. Pt had reported taking 40 tablets of 5mg of valium. However, he did not have any signs of sedation or somnolence, nor further medical complications. Utox was positive for diazepam. Noted in the ED to have low B12 146, started on cyanocobalamine 1000mgc IM qweekly for 4 weeks. He has had a number of movement changes, including neck and hand tremors, frequent falls for the past 4 years. He has been for several years on wellbutrin and abilify. We discussed starting lexapro 10mg po daily and continuing wellbutrin 300mg po daily and abilify 5mg po daily. PLAN 09/01 continue tx. lexapro 10mg po daily, wellbutrin 300mg po daily and abilify 5mg po daily. Reason for continued inpatient stay Substantial Risk for: inability to function Time Spent With Patient Time: Total time managing care of this patient today ____ minutes.
[2024-09-01 21:10] VITALS: BP 132/64; PULSE 60; RESP 16; TEMP 36.2; O2SAT 96
[2024-09-02 07:55] VITALS: BP 132/62; PULSE 61; RESP 18; TEMP 36.6; O2SAT 97
[2024-09-02] MEDS: Propranolol HCL LA 60 MG CAP.SA.24H PO (08:54)
[2024-09-02] MEDS: buPROPion HCl XL 300 MG TAB.ER.24H PO (08:55)
--- NOTE | 2024-09-02 12:11 | PC.NURSE ---
At 11am recieved call from requesting to enter for visit , it was explained that we had a bit of jesus due to having an incident on the unit that held up the prior visit. He then curtly said to me I', on time for my visit and I expect to be let in. This is against my rights I again apoligized for delay. He then stated I will be filing a complaint with the patient advocate . I then said someone will be out as soon as possible and conversation was ended
[2024-09-02 20:00] VITALS: BP 155/67; PULSE 60; RESP 16; TEMP 35.8; O2SAT 95
--- NOTE | 2024-09-02 23:40 | P.PNPSI_ITS ---
Subjective Subjective Date of Service: 09/02/24 Reason For Visit: SA Subjective Notes: Conditional Voluntary Interim History: Medical record and nursing notes reviewed; case discussed during rounds with team/nursing staff, and met with patient for supportive therapy/psychoeducation, as well as medication management. Met with patient in bed when he was with one-to-one observation. Per nursing he slept well last night, was medication compliant. Denies side effects. Reports mood is good . Appetite is so-so. Denies SI and other safety concerns. Denies voices. Patient had a unwitnessed fall yesterday. One-to-one was DC'd/ place him on 5 minute checks. Ambulate with a walker, have a visit with significant order this morning. Medication Compliance: Yes Side effects from medications: No Attending Groups: No Review of Systems Acute medical concerns: No Medical Review of Systems: unchanged Review of Systems Review of Systems Denies any shortness of breath, chest pain, dizziness, lightheadedness, abdominal pain or discomfort, nausea vomiting or diarrhea Yes all other systems are reviewed and are negative Mental Status Exam Mental Status Exam Narrative: Appearance: wearing clothing, fair hygine, sitting, mask like facial expression, neck tremor not observed as he is in bed, in NAD Behavior: cooperative, calm Psychomotor: ambulating with walker Speech:clear, decrease verbal output, spontaneous TP: mostly linear TC: feeling depressed, hopeless Mood: good Affect: constricted SI: Denies HI: none VH/AH: none Delusions: no overt signs Insight/judgment: poor x 2. Memory/cog: alert, oriented to place, month, year and situation. pending MOCA/ACL. Diagnostics Vital Signs (24Hr): Vital Signs - 24 hr 09/02/24 07:55 09/02/24 20:00 Temperature 97.9 F 96.5 F L Pulse Rate 61 60 Respiratory Rate 18 16 Blood Pressure 132/62 155/67 H Pulse Oximetry 97 95 Oxygen Delivery Method Room Air Room Air BMI result Body Mass Index 20.5 Labs 08/29/24 11:45 08/31/24 08:05 Labs: Laboratory Results - last 48 hr 09/01/24 07:44 POC Glucose 113 Imaging Radiology Impressions: ITS Impressions Head CT 08/29/24 14:46 IMPRESSION: No acute intracranial hemorrhage. Small vessel occlusive disease. Global cerebral atrophy. Atherosclerosis disease. 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 Electronically signed by: Behzad Atkins MD 08/29/2024 03:15 PM EDT RP Head CT 09/01/24 09:39 IMPRESSION: No acute intracranial abnormality. Electronically signed by: Ilia Leonard MD 09/01/2024 10:23 AM EDT RP Medications Medications Current Medications Acetaminophen (Acetaminophen 325 Mg Tablet) 650 mg PO Q6H PRN PRN Reason: moderate pain Last Admin: 08/30/24 10:33 Dose: 650 mg Al Hydroxide/Mg Hydroxide (Magnesium Hydrox/Alum Hydrox 30 Ml Oral.Susp) 30 ml PO Q6H PRN PRN Reason: Heartburn/Nausea Allopurinol (Allopurinol 300 Mg Tablet) 150 mg PO DAILY [facility] Last Admin: 09/02/24 08:53 Dose: 150 mg Apixaban (Apixaban 5 Mg Tablet) 5 mg PO BID [facility] Last Admin: 09/02/24 20:48 Dose: 5 mg Aripiprazole (Aripiprazole 5 Mg Tablet) 5 mg PO DAILY [facility] Last Admin: 09/02/24 08:54 Dose: 5 mg Bupropion HCl (Bupropion Hcl Xl 300 Mg Tab.Er.24h) 300 mg PO DAILY [facility] Last Admin: 09/02/24 08:55 Dose: 300 mg Cyanocobalamin (Cyanocobalamin (Vitamin B-12) 1,000 Mcg/Ml Vial) 1,000 mcg IM Q7D [facility] Stop: 09/27/24 07:01 Diazepam (Diazepam 5 Mg Tablet) 5 mg PO BEDTIME PRN PRN Reason: Sleep Docusate Sodium (Docusate Sodium 100 Mg/10 Ml Liquid) 250 mg PO BID PRN PRN Reason: Constipation Escitalopram Oxalate (Escitalopram Oxalate 10 Mg Tablet) 10 mg PO DAILY [facility] Last Admin: 09/02/24 08:55 Dose: 10 mg Famotidine (Famotidine 20 Mg Tablet) 20 mg PO DAILY [facility] Hydrochlorothiazide (Hydrochlorothiazide 50 Mg Tablet) 50 mg PO DAILY [facility]; Protocol Last Admin: 09/02/24 08:54 Dose: 50 mg Magnesium Hydroxide (Milk Of Magnesia 30 Ml Oral.Susp) 30 ml PO DAILY PRN PRN Reason: Constipation Propranolol HCl (Propranolol Hcl La 60 Mg Cap.Sa.24h) 60 mg PO DAILY [facility]; Protocol Last Admin: 09/02/24 08:54 Dose: 60 mg Ropinirole HCl (Ropinirole Hcl 1 Mg Tablet) 1 mg PO BEDTIME PRN PRN Reason: Restless Leg(S) Trazodone HCl (Trazodone Hcl 50 Mg Tablet) 50 mg PO BEDTIME PRN PRN Reason: Insomnia Last Admin: 09/01/24 00:43 Dose: 50 mg Allergies Allergies Allergy/AdvReac Type Severity Reaction Status Date / Time lactose Allergy Diarrhea Verified 08/29/24 20:32 Penicillins Allergy Unknown Verified 08/29/24 11:10 Assessment & Plan Assessment & Plan (1) Major depressive disorder, recurrent severe without psychotic features: Status: Acute Code(s): F33.2 - Major depressive disorder, recurrent severe without psychotic features Plan Mr. Saenz is a 74 year-old male with hx of depression who was brought via EMS after intentional OD on valium. Pt had reported taking 40 tablets of 5mg of valium. However, he did not have any signs of sedation or somnolence, nor further medical complications. Utox was positive for diazepam. Noted in the ED to have low B12 146, started on cyanocobalamine 1000mgc IM qweekly for 4 weeks. He has had a number of movement changes, including neck and hand tremors, frequent falls for the past 4 years. He has been for several years on wellbutrin and abilify. We discussed starting lexapro 10mg po daily and continuing wellbutrin 300mg po daily and abilify 5mg po daily. PLAN 09/01 continue tx. lexapro 10mg po daily, wellbutrin 300mg po daily and abilify 5mg po daily. 09/02/24: Reports good sleep last night, appetite was so so. Mood is good . Compliant with medication. He has a for unwitnessed yesterday. He was placed on one-to-one. Taken off and place on 5 minute checks. Have visit with a partner in the morning. No for episode this wanting. Denies side effects from medication. Denies Other safety concerns. Denies hallucinations. Patient educated on: medication risk/benefits Informed Consent: understands Reason for continued inpatient stay Substantial Risk for: med/psych decompensation Time Spent With Patient Time: Total time managing care of this patient today ____ minutes.
[2024-09-03 07:50] VITALS: BP 127/62; PULSE 64; RESP 18; TEMP 36.8; O2SAT 97
[2024-09-03] MEDS: Propranolol HCL LA 60 MG CAP.SA.24H PO (08:15)
[2024-09-03] MEDS: buPROPion HCl XL 300 MG TAB.ER.24H PO (08:16)
--- NOTE | 2024-09-03 14:08 | HO.PSYCHPN ---
Subjective Subjective Date of Service: 09/03/24 Reason For Visit: SA Subjective Notes: Conditional Voluntary Interim History: Medical record and nursing notes reviewed; case discussed during rounds with team/nursing staff, and met with patient for supportive therapy/psychoeducation, as well as medication management. Patient reports slept well, has no appetite issues. Compliant with medications, denies side effects. Ambulate slowly the muniz with the walker, nursing staff is when he is ambulate. Calm, pleasant, and cooperative.. Denies safety concerns. Per nursing, his partner is difficult. Medication Compliance: Yes Side effects from medications: No Attending Groups: Yes Review of Systems Acute medical concerns: No Medical Review of Systems: unchanged Review of Systems Review of Systems Denies any shortness of breath, chest pain, dizziness, lightheadedness, abdominal pain or discomfort, nausea vomiting or diarrhea Yes all other systems are reviewed and are negative Mental Status Exam Mental Status Exam Narrative: Appearance: wearing clothing, fair hygine, sitting, mask like facial expression, neck tremor not observed as he is in bed, in NAD Behavior: cooperative, calm Psychomotor: ambulating with walker Speech:clear, decrease verbal output, spontaneous TP: mostly linear TC: more positive, calm, Mood: good Affect: constricted SI: Denies HI: none VH/AH: none Delusions: no overt signs Insight/judgment: poor x 2. Memory/cog: alert, oriented to place, month, year and situation. pending MOCA/ACL. Diagnostics Vital Signs (24Hr): Vital Signs - 24 hr 09/02/24 20:00 09/03/24 07:50 Temperature 96.5 F L 98.2 F Pulse Rate 60 64 Respiratory Rate 16 18 Blood Pressure 155/67 H 127/62 Pulse Oximetry 95 97 Oxygen Delivery Method Room Air Room Air BMI result Body Mass Index 20.5 Labs 08/29/24 11:45 08/31/24 08:05 Imaging Radiology Impressions: ITS Impressions Head CT 08/29/24 14:46 IMPRESSION: No acute intracranial hemorrhage. Small vessel occlusive disease. Global cerebral atrophy. Atherosclerosis disease. 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 Electronically signed by: Behzad Atkins MD 08/29/2024 03:[address] 09/01/24 09:39 IMPRESSION: No acute intracranial abnormality. Electronically signed by: Ilia Leonard MD 09/01/2024 10:23 AM EDT RP Medications Medications Current Medications Acetaminophen (Acetaminophen 325 Mg Tablet) 650 mg PO Q6H PRN PRN Reason: moderate pain Last Admin: 08/30/24 10:33 Dose: 650 mg Al Hydroxide/Mg Hydroxide (Magnesium Hydrox/Alum Hydrox 30 Ml Oral.Susp) 30 ml PO Q6H PRN PRN Reason: Heartburn/Nausea Allopurinol (Allopurinol 300 Mg Tablet) 150 mg PO DAILY [facility] Last Admin: 09/03/24 08:16 Dose: 150 mg Apixaban (Apixaban 5 Mg Tablet) 5 mg PO BID [facility] Last Admin: 09/03/24 08:16 Dose: 5 mg Aripiprazole (Aripiprazole 5 Mg Tablet) 5 mg PO DAILY [facility] Last Admin: 09/03/24 08:16 Dose: 5 mg Bupropion HCl (Bupropion Hcl Xl 300 Mg Tab.Er.24h) 300 mg PO DAILY [facility] Last Admin: 09/03/24 08:16 Dose: 300 mg Cyanocobalamin (Cyanocobalamin (Vitamin B-12) 1,000 Mcg/Ml Vial) 1,000 mcg IM Q7D [facility] Stop: 09/27/24 07:01 Diazepam (Diazepam 5 Mg Tablet) 5 mg PO BEDTIME PRN PRN Reason: Sleep Docusate Sodium (Docusate Sodium 100 Mg/10 Ml Liquid) 250 mg PO BID PRN PRN Reason: Constipation Escitalopram Oxalate (Escitalopram Oxalate 10 Mg Tablet) 10 mg PO DAILY [facility] Last Admin: 09/03/24 08:16 Dose: 10 mg Famotidine (Famotidine 20 Mg Tablet) 20 mg PO DAILY [facility] Last Admin: 09/03/24 08:16 Dose: 20 mg Hydrochlorothiazide (Hydrochlorothiazide 50 Mg Tablet) 50 mg PO DAILY [facility]; Protocol Last Admin: 09/03/24 08:16 Dose: 50 mg Magnesium Hydroxide (Milk Of Magnesia 30 Ml Oral.Susp) 30 ml PO DAILY PRN PRN Reason: Constipation Propranolol HCl (Propranolol Hcl La 60 Mg Cap.Sa.24h) 60 mg PO DAILY [facility]; Protocol Last Admin: 09/03/24 08:15 Dose: 60 mg Ropinirole HCl (Ropinirole Hcl 1 Mg Tablet) 1 mg PO BEDTIME PRN PRN Reason: Restless Leg(S) Trazodone HCl (Trazodone Hcl 50 Mg Tablet) 50 mg PO BEDTIME PRN PRN Reason: Insomnia Last Admin: 09/01/24 00:43 Dose: 50 mg Allergies Allergies Allergy/AdvReac Type Severity Reaction Status Date / Time lactose Allergy Diarrhea Verified 08/29/24 20:32 Penicillins Allergy Unknown Verified 08/29/24 11:10 Assessment & Plan Assessment & Plan (1) Major depressive disorder, recurrent severe without psychotic features: Status: Acute Code(s): F33.2 - Major depressive disorder, recurrent severe without psychotic features Plan Mr. Saenz is a 74 year-old male with hx of depression who was brought via EMS after intentional OD on valium. Pt had reported taking 40 tablets of 5mg of valium. However, he did not have any signs of sedation or somnolence, nor further medical complications. Utox was positive for diazepam. Noted in the ED to have low B12 146, started on cyanocobalamine 1000mgc IM qweekly for 4 weeks. He has had a number of movement changes, including neck and hand tremors, frequent falls for the past 4 years. He has been for several years on wellbutrin and abilify. We discussed starting lexapro 10mg po daily and continuing wellbutrin 300mg po daily and abilify 5mg po daily. PLAN 09/01 continue tx. lexapro 10mg po daily, wellbutrin 300mg po daily and abilify 5mg po daily. 09/02/24: Reports good sleep last night, appetite was so so. Mood is good . Compliant with medication. He has a for unwitnessed yesterday. He was placed on one-to-one. Taken off and place on 5 minute checks. Have visit with a partner in the morning. No for episode this wanting. Denies side effects from medication. Denies Other safety concerns. Denies hallucinations. 09/03/24: No issues with sleep or appetite. Remain on 5 minute checks for safety. Evaluate the muniz with the walker, nursing staff to help him while ambulating. Medication compliant and Denies side effects. Per pharmacy, due to low kidneys function, lowered on Pepcid to once a day. Patient educated on: medication risk/benefits and therapeutic strategies Informed Consent: understands and further education needed Reason for continued inpatient stay Substantial Risk for: med/psych decompensation Time Spent With Patient Time: Total time managing care of this patient today ____ minutes.
[2024-09-03 20:00] VITALS: BP 132/62; PULSE 60; RESP 18; TEMP 36.8; O2SAT 95
[2024-09-04] MEDS: buPROPion HCl XL 300 MG TAB.ER.24H PO (08:37)
[2024-09-04 08:39] VITALS: BP 122/58; PULSE 60; RESP 18; TEMP 36.2; O2SAT 98
[2024-09-04] MEDS: Propranolol HCL LA 60 MG CAP.SA.24H PO (08:46)
--- NOTE | 2024-09-04 10:46 | P.PNPSI_ITS ---
Subjective Subjective Date of Service: 09/04/24 Reason For Visit: SA Subjective Notes: Conditional Voluntary Interim History: Pt slept through the night. He reports feeling less depressed. He is not sure what has helped. He regrets OD. He denies SI/HI. We had family meeting with his - Kyle. discussed cognitive/memory assessments, medications and aftercare plans. Pt has been visible on the unit, social with select peers. Medication Compliance: Yes Diagnostics Vital Signs (24Hr): Vital Signs - 24 hr 09/03/24 20:00 09/04/24 08:39 Temperature 98.2 F 97.2 F Pulse Rate 60 60 Respiratory Rate 18 18 Blood Pressure 132/62 122/58 L Pulse Oximetry 95 98 Oxygen Delivery Method Room Air Room Air BMI result Body Mass Index 20.5 Labs 08/29/24 11:45 08/31/24 08:05 Imaging Radiology Impressions: ITS Impressions Head CT 08/29/24 14:46 IMPRESSION: No acute intracranial hemorrhage. Small vessel occlusive disease. Global cerebral atrophy. Atherosclerosis disease. 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 Electronically signed by: Behzad Atkins MD 08/29/2024 03:15 PM EDT RP Head CT 09/01/24 09:39 IMPRESSION: No acute intracranial abnormality. Electronically signed by: Ilia Leonard MD 09/01/2024 10:23 AM EDT RP Medications Medications Current Medications Acetaminophen (Acetaminophen 325 Mg Tablet) 650 mg PO Q6H PRN PRN Reason: moderate pain Last Admin: 08/30/24 10:33 Dose: 650 mg Al Hydroxide/Mg Hydroxide (Magnesium Hydrox/Alum Hydrox 30 Ml Oral.Susp) 30 ml PO Q6H PRN PRN Reason: Heartburn/Nausea Allopurinol (Allopurinol 300 Mg Tablet) 150 mg PO DAILY [facility] Last Admin: 09/04/24 08:37 Dose: 150 mg Apixaban (Apixaban 5 Mg Tablet) 5 mg PO BID [facility] Last Admin: 09/04/24 08:37 Dose: 5 mg Aripiprazole (Aripiprazole 5 Mg Tablet) 5 mg PO DAILY [facility] Last Admin: 09/04/24 08:38 Dose: 5 mg Bupropion HCl (Bupropion Hcl Xl 300 Mg Tab.Er.24h) 300 mg PO DAILY [facility] Last Admin: 09/04/24 08:37 Dose: 300 mg Cyanocobalamin (Cyanocobalamin (Vitamin B-12) 1,000 Mcg/Ml Vial) 1,000 mcg IM Q7D [facility] Stop: 09/27/24 07:01 Diazepam (Diazepam 5 Mg Tablet) 5 mg PO BEDTIME PRN PRN Reason: Sleep Docusate Sodium (Docusate Sodium 100 Mg/10 Ml Liquid) 250 mg PO BID PRN PRN Reason: Constipation Escitalopram Oxalate (Escitalopram Oxalate 10 Mg Tablet) 10 mg PO DAILY [facility] Last Admin: 09/04/24 08:38 Dose: 10 mg Famotidine (Famotidine 20 Mg Tablet) 20 mg PO DAILY [facility] Last Admin: 09/04/24 08:37 Dose: 20 mg Hydrochlorothiazide (Hydrochlorothiazide 50 Mg Tablet) 50 mg PO DAILY [facility]; Protocol Last Admin: 09/04/24 08:46 Dose: 50 mg Magnesium Hydroxide (Milk Of Magnesia 30 Ml Oral.Susp) 30 ml PO DAILY PRN PRN Reason: Constipation Propranolol HCl (Propranolol Hcl La 60 Mg Cap.Sa.24h) 60 mg PO DAILY [facility]; Protocol Last Admin: 09/04/24 08:46 Dose: 60 mg Ropinirole HCl (Ropinirole Hcl 1 Mg Tablet) 1 mg PO BEDTIME PRN PRN Reason: Restless Leg(S) Trazodone HCl (Trazodone Hcl 50 Mg Tablet) 50 mg PO BEDTIME PRN PRN Reason: Insomnia Last Admin: 09/01/24 00:43 Dose: 50 mg Allergies Allergies Allergy/AdvReac Type Severity Reaction Status Date / Time lactose Allergy Diarrhea Verified 08/29/24 20:32 Penicillins Allergy Unknown Verified 08/29/24 11:10 Assessment & Plan Assessment & Plan (1) Major depressive disorder, recurrent severe without psychotic features: Status: Acute Code(s): F33.2 - Major depressive disorder, recurrent severe without psychotic features Plan Mr. Saenz is a 74 year-old male with hx of depression who was brought via EMS after intentional OD on valium. Pt had reported taking 40 tablets of 5mg of valium. However, he did not have any signs of sedation or somnolence, nor further medical complications. Utox was positive for diazepam. Noted in the ED to have low B12 146, started on cyanocobalamine 1000mgc IM qweekly for 4 weeks. He has had a number of movement changes, including neck and hand tremors, frequent falls for the past 4 years. He has been for several years on wellbutrin and abilify. We discussed starting lexapro 10mg po daily and continuing wellbutrin 300mg po daily and abilify 5mg po daily. PLAN 09/01 continue tx. lexapro 10mg po daily, wellbutrin 300mg po daily and abilify 5mg po daily. 09/02/24: Reports good sleep last night, appetite was so so. Mood is good . Compliant with medication. He has a for unwitnessed yesterday. He was placed on one-to-one. Taken off and place on 5 minute checks. Have visit with a partner in the morning. No for episode this wanting. Denies side effects from medication. Denies Other safety concerns. Denies hallucinations. 09/03/24: No issues with sleep or appetite. Remain on 5 minute checks for safety. Evaluate the muniz with the walker, nursing staff to help him while ambulating. Medication compliant and Denies side effects. Per pharmacy, due to low kidneys function, lowered on Pepcid to once a day. 09/04 continue tx. plan to d/c 09/08. Reason for continued inpatient stay Substantial Risk for: harm to self Time Spent With Patient Time: Total time managing care of this patient today ____ minutes.
[2024-09-04 19:41] VITALS: BP 130/61; PULSE 60; RESP 18; TEMP 36.7; O2SAT 95
[2024-09-05 08:56] VITALS: BP 135/61; PULSE 71; RESP 16; TEMP 36.5; O2SAT 94
[2024-09-05] MEDS: Propranolol HCL LA 60 MG CAP.SA.24H PO (09:02)
[2024-09-05] MEDS: buPROPion HCl XL 300 MG TAB.ER.24H PO (09:04)
--- NOTE | 2024-09-05 16:30 | HO.PSYCHPN ---
Subjective Subjective Date of Service: 09/05/24 Reason For Visit: SA Subjective Notes: Conditional Voluntary Interim History: Pt slept through the night. He reports feeling less depressed. He reports this experience has brought him and his closer. He denies SI/HI. He hopes couples therapy helps with their relationship. He has been visible on the unit. Social with peers. Review of Systems Review of Systems Denies any shortness of breath, chest pain, dizziness, lightheadedness, abdominal pain or discomfort, nausea vomiting or diarrhea Yes all other systems are reviewed and are negative Mental Status Exam Mental Status Exam Narrative: Appearance: wearing clothing, fair hygine, sitting, mask like facial expression, neck tremor not observed as he is in bed, in NAD Behavior: cooperative, calm Psychomotor: ambulating with walker Speech:clear, decrease verbal output, spontaneous TP: mostly linear TC: more positive, calm, Mood: good Affect: constricted SI: Denies HI: none VH/AH: none Delusions: no overt signs Insight/judgment: poor x 2. Memory/cog: alert, oriented to place, month, year and situation. pending MOCA/ACL. Diagnostics Vital Signs (24Hr): Vital Signs - 24 hr 09/04/24 19:41 09/05/24 08:56 Temperature 98.1 F 97.7 F Pulse Rate 60 71 Respiratory Rate 18 16 Blood Pressure 130/61 135/61 Pulse Oximetry 95 94 Oxygen Delivery Method Room Air Room Air BMI result Body Mass Index 20.5 Labs 08/29/24 11:45 08/31/24 08:05 Imaging Radiology Impressions: ITS Impressions Head CT 08/29/24 14:46 IMPRESSION: No acute intracranial hemorrhage. Small vessel occlusive disease. Global cerebral atrophy. Atherosclerosis disease. 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 Electronically signed by: Behzad Atkins MD 08/29/2024 03:15 PM EDT RP Head CT 09/01/24 09:39 IMPRESSION: No acute intracranial abnormality. Electronically signed by: Ilia Leonard MD 09/01/2024 10:23 AM EDT RP Medications Medications Current Medications Acetaminophen (Acetaminophen 325 Mg Tablet) 650 mg PO Q6H PRN PRN Reason: moderate pain Last Admin: 08/30/24 10:33 Dose: 650 mg Al Hydroxide/Mg Hydroxide (Magnesium Hydrox/Alum Hydrox 30 Ml Oral.Susp) 30 ml PO Q6H PRN PRN Reason: Heartburn/Nausea Allopurinol (Allopurinol 300 Mg Tablet) 150 mg PO DAILY [facility] Last Admin: 09/05/24 08:59 Dose: 150 mg Apixaban (Apixaban 5 Mg Tablet) 5 mg PO BID [facility] Last Admin: 09/05/24 08:59 Dose: 5 mg Aripiprazole (Aripiprazole 5 Mg Tablet) 5 mg PO DAILY [facility] Last Admin: 09/05/24 08:59 Dose: 5 mg Bupropion HCl (Bupropion Hcl Xl 300 Mg Tab.Er.24h) 300 mg PO DAILY [facility] Last Admin: 09/05/24 09:04 Dose: 300 mg Cyanocobalamin (Cyanocobalamin (Vitamin B-12) 1,000 Mcg/Ml Vial) 1,000 mcg IM Q7D [facility] Stop: 09/27/24 07:01 Diazepam (Diazepam 5 Mg Tablet) 5 mg PO BEDTIME PRN PRN Reason: Sleep Docusate Sodium (Docusate Sodium 100 Mg/10 Ml Liquid) 250 mg PO BID PRN PRN Reason: Constipation Escitalopram Oxalate (Escitalopram Oxalate 10 Mg Tablet) 10 mg PO DAILY [facility] Last Admin: 09/05/24 08:59 Dose: 10 mg Famotidine (Famotidine 20 Mg Tablet) 20 mg PO DAILY [facility] Last Admin: 09/05/24 09:01 Dose: 20 mg Hydrochlorothiazide (Hydrochlorothiazide 50 Mg Tablet) 50 mg PO DAILY [facility]; Protocol Last Admin: 09/05/24 08:59 Dose: 50 mg Magnesium Hydroxide (Milk Of Magnesia 30 Ml Oral.Susp) 30 ml PO DAILY PRN PRN Reason: Constipation Propranolol HCl (Propranolol Hcl La 60 Mg Cap.Sa.24h) 60 mg PO DAILY [facility]; Protocol Last Admin: 09/05/24 09:02 Dose: 60 mg Ropinirole HCl (Ropinirole Hcl 1 Mg Tablet) 1 mg PO BEDTIME PRN PRN Reason: Restless Leg(S) Trazodone HCl (Trazodone Hcl 50 Mg Tablet) 50 mg PO BEDTIME PRN PRN Reason: Insomnia Last Admin: 09/01/24 00:43 Dose: 50 mg Allergies Allergies Allergy/AdvReac Type Severity Reaction Status Date / Time lactose Allergy Diarrhea Verified 08/29/24 20:32 Penicillins Allergy Unknown Verified 08/29/24 11:10 Assessment & Plan Assessment & Plan (1) Major depressive disorder, recurrent severe without psychotic features: Status: Acute Code(s): F33.2 - Major depressive disorder, recurrent severe without psychotic features Plan Mr. Saenz is a 74 year-old male with hx of depression who was brought via EMS after intentional OD on valium. Pt had reported taking 40 tablets of 5mg of valium. However, he did not have any signs of sedation or somnolence, nor further medical complications. Utox was positive for diazepam. Noted in the ED to have low B12 146, started on cyanocobalamine 1000mgc IM qweekly for 4 weeks. He has had a number of movement changes, including neck and hand tremors, frequent falls for the past 4 years. He has been for several years on wellbutrin and abilify. We discussed starting lexapro 10mg po daily and continuing wellbutrin 300mg po daily and abilify 5mg po daily. PLAN 09/01 continue tx. lexapro 10mg po daily, wellbutrin 300mg po daily and abilify 5mg po daily. 09/02/24: Reports good sleep last night, appetite was so so. Mood is good . Compliant with medication. He has a for unwitnessed yesterday. He was placed on one-to-one. Taken off and place on 5 minute checks. Have visit with a partner in the morning. No for episode this wanting. Denies side effects from medication. Denies Other safety concerns. Denies hallucinations. 09/03/24: No issues with sleep or appetite. Remain on 5 minute checks for safety. Evaluate the muniz with the walker, nursing staff to help him while ambulating. Medication compliant and Denies side effects. Per pharmacy, due to low kidneys function, lowered on Pepcid to once a day. 09/04 continue tx. plan to d/c 09/08. 09/05 continue tx. Reason for continued inpatient stay Substantial Risk for: inability to function Time Spent With Patient Time: Total time managing care of this patient today ____ minutes.
[2024-09-05 20:00] VITALS: BP 125/61; PULSE 60; RESP 17; TEMP 36.6; O2SAT 93
[2024-09-06 07:55] VITALS: BP 110/62; PULSE 66; RESP 18; TEMP 36.4; O2SAT 96
[2024-09-06] MEDS: buPROPion HCl XL 300 MG TAB.ER.24H PO (08:19)
[2024-09-06] MEDS: Propranolol HCL LA 60 MG CAP.SA.24H PO (08:20)
--- NOTE | 2024-09-06 16:22 | HO.PSYCHPN ---
Subjective Subjective Date of Service: 09/06/24 Reason For Visit: SA Subjective Notes: Conditional Voluntary Interim History: Pt slept through the night. He continues to denied SI/HI. He appears with brighter affect. He reports he is looking forward to return home on Wednesday. he feels Kyle is supportive and has his best interest but has a strong personality. He notes is hard for him sometimes to speak up because he does not want to create conflict. He is hopeful about couples therapy. Medication Compliance: Yes Review of Systems Review of Systems Denies any shortness of breath, chest pain, dizziness, lightheadedness, abdominal pain or discomfort, nausea vomiting or diarrhea Yes all other systems are reviewed and are negative Mental Status Exam Mental Status Exam Narrative: Appearance: wearing clothing, fair hygine, sitting, mask like facial expression, neck tremor not observed as he is in bed, in NAD Behavior: cooperative, calm Psychomotor: ambulating with walker Speech:clear, decrease verbal output, spontaneous TP: mostly linear TC: more positive, calm, Mood: good Affect: constricted SI: Denies HI: none VH/AH: none Delusions: no overt signs Insight/judgment: poor x 2. Memory/cog: alert, oriented to place, month, year and situation. pending MOCA/ACL. Diagnostics Vital Signs (24Hr): Vital Signs - 24 hr 09/05/24 20:00 09/06/24 07:55 Temperature 97.8 F 97.5 F Pulse Rate 60 66 Respiratory Rate 17 18 Blood Pressure 125/61 110/62 Pulse Oximetry 93 96 Oxygen Delivery Method Room Air Room Air BMI result Body Mass Index 20.5 Labs 08/29/24 11:45 08/31/24 08:05 Imaging Radiology Impressions: ITS Impressions Head CT 08/29/24 14:46 IMPRESSION: No acute intracranial hemorrhage. Small vessel occlusive disease. Global cerebral atrophy. Atherosclerosis disease. 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 Electronically signed by: Behzad Atkins MD 08/29/2024 03:15 PM EDT RP Head CT 09/01/24 09:39 IMPRESSION: No acute intracranial abnormality. Electronically signed by: Ilia Leonard MD 09/01/2024 10:23 AM EDT RP Medications Medications Current Medications Acetaminophen (Acetaminophen 325 Mg Tablet) 650 mg PO Q6H PRN PRN Reason: moderate pain Last Admin: 08/30/24 10:33 Dose: 650 mg Al Hydroxide/Mg Hydroxide (Magnesium Hydrox/Alum Hydrox 30 Ml Oral.Susp) 30 ml PO Q6H PRN PRN Reason: Heartburn/Nausea Allopurinol (Allopurinol 300 Mg Tablet) 150 mg PO DAILY [facility] Last Admin: 09/06/24 08:20 Dose: 150 mg Apixaban (Apixaban 5 Mg Tablet) 5 mg PO BID [facility] Last Admin: 09/06/24 08:20 Dose: 5 mg Aripiprazole (Aripiprazole 5 Mg Tablet) 5 mg PO DAILY [facility] Last Admin: 09/06/24 08:19 Dose: 5 mg Bupropion HCl (Bupropion Hcl Xl 300 Mg Tab.Er.24h) 300 mg PO DAILY [facility] Last Admin: 09/06/24 08:19 Dose: 300 mg Cyanocobalamin (Cyanocobalamin (Vitamin B-12) 1,000 Mcg/Ml Vial) 1,000 mcg IM Q7D [facility] Stop: 09/27/24 07:01 Last Admin: 09/06/24 07:38 Dose: 1,000 mcg Diazepam (Diazepam 5 Mg Tablet) 5 mg PO BEDTIME PRN PRN Reason: Sleep Docusate Sodium (Docusate Sodium 100 Mg/10 Ml Liquid) 250 mg PO BID PRN PRN Reason: Constipation Escitalopram Oxalate (Escitalopram Oxalate 10 Mg Tablet) 10 mg PO DAILY [facility] Last Admin: 09/06/24 08:20 Dose: 10 mg Famotidine (Famotidine 20 Mg Tablet) 20 mg PO DAILY [facility] Last Admin: 09/06/24 08:19 Dose: 20 mg Hydrochlorothiazide (Hydrochlorothiazide 50 Mg Tablet) 50 mg PO DAILY [facility]; Protocol Last Admin: 09/06/24 08:19 Dose: 50 mg Magnesium Hydroxide (Milk Of Magnesia 30 Ml Oral.Susp) 30 ml PO DAILY PRN PRN Reason: Constipation Propranolol HCl (Propranolol Hcl La 60 Mg Cap.Sa.24h) 60 mg PO DAILY [facility]; Protocol Last Admin: 09/06/24 08:20 Dose: 60 mg Ropinirole HCl (Ropinirole Hcl 1 Mg Tablet) 1 mg PO BEDTIME PRN PRN Reason: Restless Leg(S) Trazodone HCl (Trazodone Hcl 50 Mg Tablet) 50 mg PO BEDTIME PRN PRN Reason: Insomnia Last Admin: 09/01/24 00:43 Dose: 50 mg Allergies Allergies Allergy/AdvReac Type Severity Reaction Status Date / Time lactose Allergy Diarrhea Verified 08/29/24 20:32 Penicillins Allergy Unknown Verified 08/29/24 11:10 Assessment & Plan Assessment & Plan (1) Major depressive disorder, recurrent severe without psychotic features: Status: Acute Code(s): F33.2 - Major depressive disorder, recurrent severe without psychotic features Plan Mr. Saenz is a 74 year-old male with hx of depression who was brought via EMS after intentional OD on valium. Pt had reported taking 40 tablets of 5mg of valium. However, he did not have any signs of sedation or somnolence, nor further medical complications. Utox was positive for diazepam. Noted in the ED to have low B12 146, started on cyanocobalamine 1000mgc IM qweekly for 4 weeks. He has had a number of movement changes, including neck and hand tremors, frequent falls for the past 4 years. He has been for several years on wellbutrin and abilify. We discussed starting lexapro 10mg po daily and continuing wellbutrin 300mg po daily and abilify 5mg po daily. PLAN 09/01 continue tx. lexapro 10mg po daily, wellbutrin 300mg po daily and abilify 5mg po daily. 09/02/24: Reports good sleep last night, appetite was so so. Mood is good . Compliant with medication. He has a for unwitnessed yesterday. He was placed on one-to-one. Taken off and place on 5 minute checks. Have visit with a partner in the morning. No for episode this wanting. Denies side effects from medication. Denies Other safety concerns. Denies hallucinations. 09/03/24: No issues with sleep or appetite. Remain on 5 minute checks for safety. Evaluate the muniz with the walker, nursing staff to help him while ambulating. Medication compliant and Denies side effects. Per pharmacy, due to low kidneys function, lowered on Pepcid to once a day. 09/04 continue tx. plan to d/c 09/08. 09/05 continue tx. 09/06 continue tx. Reason for continued inpatient stay Substantial Risk for: inability to function Time Spent With Patient Time: Total time managing care of this patient today ____ minutes.
[2024-09-06 20:00] VITALS: BP 122/64; PULSE 59; RESP 18; TEMP 36.6; O2SAT 94
[2024-09-07 08:00] VITALS: BP 130/61; PULSE 59; TEMP 2.4; TEMP 36.4; O2SAT 98
[2024-09-07] MEDS: Propranolol HCL LA 60 MG CAP.SA.24H PO (08:37)
[2024-09-07] MEDS: buPROPion HCl XL 300 MG TAB.ER.24H PO (08:37)
--- NOTE | 2024-09-07 15:27 | HO.PSYCHPN ---
Subjective Subjective Date of Service: 09/07/24 Reason For Visit: SA Subjective Notes: Conditional Voluntary Interim History: Pt slept through the night. Pt reports doing better. He reports looking forward to return home tomorrow. No SI/HI. No side effects with medications. He reports he has enjoyed some of the groups. Medication Compliance: Yes Side effects from medications: No Review of Systems Review of Systems Denies any shortness of breath, chest pain, dizziness, lightheadedness, abdominal pain or discomfort, nausea vomiting or diarrhea Yes all other systems are reviewed and are negative Mental Status Exam Mental Status Exam Narrative: Appearance: wearing clothing, fair hygine, sitting, mask like facial expression, neck tremor not observed as he is in bed, in NAD Behavior: cooperative, calm Psychomotor: ambulating with walker Speech:clear, decrease verbal output, spontaneous TP: mostly linear TC: more positive, calm, Mood: good Affect: constricted SI: Denies HI: none VH/AH: none Delusions: no overt signs Insight/judgment: poor x 2. Memory/cog: alert, oriented to place, month, year and situation. pending MOCA/ACL. Diagnostics Vital Signs (24Hr): Vital Signs - 24 hr 09/06/24 20:00 09/07/24 08:00 Temperature 97.9 F 36.4 F L Pulse Rate 59 59 Respiratory Rate 18 Blood Pressure 122/64 130/61 Pulse Oximetry 94 98 Oxygen Delivery Method Room Air Room Air BMI result Body Mass Index 20.5 Labs 08/29/24 11:45 08/31/24 08:05 Imaging Radiology Impressions: ITS Impressions Head CT 08/29/24 14:46 IMPRESSION: No acute intracranial hemorrhage. Small vessel occlusive disease. Global cerebral atrophy. Atherosclerosis disease. 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 Electronically signed by: Behzad Atkins MD 08/29/2024 03:15 PM EDT RP Head CT 09/01/24 09:39 IMPRESSION: No acute intracranial abnormality. Electronically signed by: Ilia Leonard MD 09/01/2024 10:23 AM EDT RP Medications Medications Current Medications Acetaminophen (Acetaminophen 325 Mg Tablet) 650 mg PO Q6H PRN PRN Reason: moderate pain Last Admin: 08/30/24 10:33 Dose: 650 mg Al Hydroxide/Mg Hydroxide (Magnesium Hydrox/Alum Hydrox 30 Ml Oral.Susp) 30 ml PO Q6H PRN PRN Reason: Heartburn/Nausea Allopurinol (Allopurinol 300 Mg Tablet) 150 mg PO DAILY [facility] Last Admin: 09/07/24 08:35 Dose: 150 mg Apixaban (Apixaban 5 Mg Tablet) 5 mg PO BID [facility] Last Admin: 09/07/24 08:39 Dose: 5 mg Aripiprazole (Aripiprazole 5 Mg Tablet) 5 mg PO DAILY [facility] Last Admin: 09/07/24 08:38 Dose: 5 mg Bupropion HCl (Bupropion Hcl Xl 300 Mg Tab.Er.24h) 300 mg PO DAILY [facility] Last Admin: 09/07/24 08:37 Dose: 300 mg Cyanocobalamin (Cyanocobalamin (Vitamin B-12) 1,000 Mcg/Ml Vial) 1,000 mcg IM Q7D [facility] Stop: 09/27/24 07:01 Last Admin: 09/06/24 07:38 Dose: 1,000 mcg Diazepam (Diazepam 5 Mg Tablet) 5 mg PO BEDTIME PRN PRN Reason: Sleep Docusate Sodium (Docusate Sodium 100 Mg/10 Ml Liquid) 250 mg PO BID PRN PRN Reason: Constipation Escitalopram Oxalate (Escitalopram Oxalate 10 Mg Tablet) 10 mg PO DAILY [facility] Last Admin: 09/07/24 08:37 Dose: 10 mg Famotidine (Famotidine 20 Mg Tablet) 20 mg PO DAILY [facility] Last Admin: 09/07/24 08:37 Dose: 20 mg Hydrochlorothiazide (Hydrochlorothiazide 50 Mg Tablet) 50 mg PO DAILY [facility]; Protocol Last Admin: 09/07/24 08:35 Dose: 50 mg Magnesium Hydroxide (Milk Of Magnesia 30 Ml Oral.Susp) 30 ml PO DAILY PRN PRN Reason: Constipation Propranolol HCl (Propranolol Hcl La 60 Mg Cap.Sa.24h) 60 mg PO DAILY [facility]; Protocol Last Admin: 09/07/24 08:37 Dose: 60 mg Ropinirole HCl (Ropinirole Hcl 1 Mg Tablet) 1 mg PO BEDTIME PRN PRN Reason: Restless Leg(S) Trazodone HCl (Trazodone Hcl 50 Mg Tablet) 50 mg PO BEDTIME PRN PRN Reason: Insomnia Last Admin: 09/01/24 00:43 Dose: 50 mg Allergies Allergies Allergy/AdvReac Type Severity Reaction Status Date / Time lactose Allergy Diarrhea Verified 08/29/24 20:32 Penicillins Allergy Unknown Verified 08/29/24 11:10 Assessment & Plan Assessment & Plan (1) Major depressive disorder, recurrent severe without psychotic features: Status: Acute Code(s): F33.2 - Major depressive disorder, recurrent severe without psychotic features Plan Mr. Saenz is a 74 year-old male with hx of depression who was brought via EMS after intentional OD on valium. Pt had reported taking 40 tablets of 5mg of valium. However, he did not have any signs of sedation or somnolence, nor further medical complications. Utox was positive for diazepam. Noted in the ED to have low B12 146, started on cyanocobalamine 1000mgc IM qweekly for 4 weeks. He has had a number of movement changes, including neck and hand tremors, frequent falls for the past 4 years. He has been for several years on wellbutrin and abilify. We discussed starting lexapro 10mg po daily and continuing wellbutrin 300mg po daily and abilify 5mg po daily. PLAN 09/01 continue tx. lexapro 10mg po daily, wellbutrin 300mg po daily and abilify 5mg po daily. 09/02/24: Reports good sleep last night, appetite was so so. Mood is good . Compliant with medication. He has a for unwitnessed yesterday. He was placed on one-to-one. Taken off and place on 5 minute checks. Have visit with a partner in the morning. No for episode this wanting. Denies side effects from medication. Denies Other safety concerns. Denies hallucinations. 09/03/24: No issues with sleep or appetite. Remain on 5 minute checks for safety. Evaluate the muniz with the walker, nursing staff to help him while ambulating. Medication compliant and Denies side effects. Per pharmacy, due to low kidneys function, lowered on Pepcid to once a day. 09/04 continue tx. plan to d/c 09/08. 09/05 continue tx. 09/06 continue tx. 09/08 continue tx. Reason for continued inpatient stay Substantial Risk for: inability to function Time Spent With Patient Time: Total time managing care of this patient today ____ minutes.
[2024-09-07 20:00] VITALS: BP 139/60; PULSE 60; RESP 18; TEMP 36.7; O2SAT 95
[2024-09-08 08:00] VITALS: BP 140/83; PULSE 64; RESP 14; TEMP 2.4; TEMP 36.4; O2SAT 95
--- NOTE | 2024-09-08 09:16 | P.DS_ITS ---
DS: Providers Provider Date of Service: 09/08/24 Date of admission: 08/30/24 11:18 Date of discharge: 09/08/24 Primary care physician: Letty Durant MD DS: Diagnosis Discharge Diagnosis (1) Major depressive disorder, recurrent severe without psychotic features: Status: Acute DS: Medications Discharge Medications Home Medications: Home Medications ?Medication ?Instructions ?Recorded ?Confirmed aripiprazole 5 mg tablet 5 mg PO DAILY 08/30/2408/30 docusate sodium 250 mg capsule 250 mg PO BID PRN Const ipation 08/30/24 08/30/24 Previous Rx's ?Medication ?Instructions ?Recorded allopurinol 300 mg tablet 150 mg (1/2 x 300 mg) PO HARMEET LY #30 09/07/24 tabs apixaban 5 mg tablet (Eliquis) 5 mg PO BID #60 tabs aripiprazole 5 mg tablet (Abilify) 5 mg PO DAILY #30 t abs 09/07/24 bupropion HCl 300 mg 24 hr tablet, 300 mg PO DAILY #30 tabs 09/07/24 extended release cyanocobalamin (vitamin B-12) 500 500 mcg sublingual D AILY #30 tabs 09/07/24 mcg sublingual tablet escitalopram oxalate 10 mg tablet 10 mg PO DAILY #30 t abs 09/07/24 famotidine 20 mg tablet 20 mg PO DAILY #30 tabs 08/22 09/15 hydrochlorothiazide 50 mg tablet 50 mg PO DAILY #30 ta bs 09/07/24 propranolol 60 mg capsule,24 60 mg PO DAILY #30 caps 0 09/07/24 hr,extended release trazodone 50 mg tablet 50 mg PO BEDTIME PRN Insomni a #30 09/07/24 tabs Mental Status Exam Mental Status Exam Narrative: Appearance: wearing clothing, fair hygine, sitting, mask like facial expression, neck tremor not observed as he is in bed, in NAD Behavior: cooperative, calm Psychomotor: ambulating with walker Speech:clear, decrease verbal output, spontaneous TP: mostly linear TC: more positive, calm, Mood: good Affect: constricted SI: Denies HI: none VH/AH: none Delusions: no overt signs Insight/judgment: poor x 2. Memory/cog: alert, oriented to place, month, year and situation. Data Imaging Diagnostic Imaging Impressions Head CT 08/29/24 14:46 IMPRESSION: No acute intracranial hemorrhage. Small vessel occlusive disease. Global cerebral atrophy. Atherosclerosis disease. 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 Electronically signed by: Behzad Atkins MD 08/29/2024 03:15 PM EDT RP Head CT 09/01/24 09:39 IMPRESSION: No acute intracranial abnormality. Electronically signed by: Ilia Leonard MD 09/01/2024 10:23 AM EDT RP DS: Summary Hospital Course Hospital Course: Mr. Saenz is a 74 year-old male with hx of MDD who brought via EMS after he disclosed to his that he had taken 40 tablets of valium 5mg. Per EMS report, pt was found in the home, alert, oriented, no signs of sedation, no VS alterations. In the ED, pt also presented as alert, reported suicidal ideation and feeling very depressed for several months. He did not present with medical symptoms consistent with ingestion of reported amount of valium. While in the ED, he did not appear sedated nor had any changes in mentation. He was observed per poison control protocol and eventually medically cleared. ED note also r eports that pill count was discrepant with report of taking 40 tablets. Pertinent labs completed in the ED include CBC with no leukocytosis, normocytic anemia with end of high normal MCV (97.4), B12 is very low 146, iron studies normal iron, saturation with low TIBC not suggestive of iron deficiency. Plt 156. He received cyanocobalamin 1000mcg IM once with plan to receive one weekly x 4 weeks. CMP without electrolyte abnormalities, BUN 17, Cr 1.27, creatinine clearance 46.7. A1C 5.6. TSH 3.04, Vit D 34.7. UA wnl, not suggestive of UTI. Head CT on 08/29/2024 showed small vessel occlusive disease, global cerebral atrophy, artherosclerosis, ?probable Max's pouch cyst. On the unit, pt reports he has been depressed for several months ever since covid started in the context of isolation but also worsening of physical mobility with tremors and falls. However, he reports increased depressed mood in recent months with ongoing suicidal ideation without a plan. Per , pt has been very depressed for several month with passive suicidal ideation but had not acted on ideation. Pt reports they had a trip coming up and he did not want to go and this added to eventually deciding to OD. Pt reports fair sleep. He endorses anhedonia, low energy, feeling hopeless, helpless. No hx of psychosis or delusions. No hx suggestive of hypomania or hilda. Collateral information from Mr. Saenz's , Kyle, who reports pt has been depressed since [facility]. Kyle reports that he was aware that Mr. Saenz has had suicidal ideation but no plan nor intent to harm himself. He reports it was a surprise to him when pt disclosed to him that he had an intentional OD. Kyle reports pt has been more reluctant to go out or go on trips as they used to and he used to enjoy. Collateral information from prescriber, Quinton Byrne who reports patient has been on wellbutrin 450mg po daily and abilify 5mg po daily for at least 3-4 years. No recent medication changes. Quinton reports during meeting pt has been denying symptoms of depression and suicidality. HOSPITAL COURSE On the unit, pt was admitted on a CV and placed on 5 minutes checks due to fall risk. He initially reported feeling more depressed in the past several months. It does appear that some of the stressors are related to his relationship with his . Difficulty speaking up without causing a more intense emotional reaction from . He regretted intentional OD. He adamantly denied intent or plan to end his life. Over the course of this admission, he reports being able to express his concerns about his relationship with his and hoping that couples therapy can help their relationship. We discussed risks, benefits and alternative treatment options. He was continued on wellbutrin (he was prescribed 450mg po daily but was taking 300mg po daily). He was continued on 300mg po daily. He was also continued on abilify 5mg po daily. He was started on lexapro 10mg po daily to boost antidepressant effect. He was sleeping and eating well. He was visible on the unit and social with select peers. There were no incidences of disruptive behaviors nor need for restraints. He continued to have significant movement disturbances including neck tremors, resting tremor, retropulsion, freezing gait when turning or initiating walking/ standing up. He is at high risk of falls because of this. Advised to follow up with neurology in [place] as they have. B12 levels noted to be low in 146. He was given cyanocobalamine 1000mcg IM weekly x 2. He was then transition to oral cyanocobalamine 500mcg po daily. Status at Discharge Cognitive/behavioral status at discharge: Pt with brighter affect. No SI/HI. No overt psychosis or delusions. Sleeping and eating well. Functional status at discharge: uses cane/walker Overall status at discharge: patient is progressing back to baseline Time Spent with Patient Time attestation: Total time managing care of this patient today __45__ minutes. Time spent: Greater than 30 minutes Discharge Plan Discharge Anticipated Discharge Date/Time: 09/08/24 09:00 Patient Disposition: Home, Self-Care Discharge Diagnosis: MDD, recurrent, moderate Referrals: Therapy: [facility] [Other] - 09/11/24 11:00 am Referral Note: Virtual/Zoom Therapy: [facility] [Other] - 09/14/24 11:00 am Referral Note: Virtual/Zoom Therapy: [facility] [Other] - 09/18/24 11:00 am Referral Note: Virtual/Zoom Therapy: [facility] [Other] - 09/21/24 11:00 am Referral Note: Virtual/Zoom [facility] [Outside] - 1 Week Referral Note: A referral has been sent for [facility]. The discharge summary and medication list will be sent after discharge and they will be in touch with you for an intake appointment. If you have not heard from them with in a week of discharge please call the number listed. Letty Durant MD [Primary Care Provider, [facility]] - 09/19/24 10:00 am Discharge Medications: New trazodone 50 mg Tablet 50 mg PO BEDTIME PRN (Reason: Insomnia) Qty: 30 0RF hydrochlorothiazide 50 mg Tablet 50 mg PO DAILY Qty: 30 0RF Protocol: Hold for SBP< HOLD for SBP < : 90 propranolol 60 mg Capsule,Extended Release 24 Hr 60 mg PO DAILY Qty: 30 0RF Protocol: Hold for SBP/HR < HOLD for SBP < : 90 HOLD for HR < : 60 famotidine 20 mg Tablet 20 mg PO DAILY Qty: 30 0RF allopurinol 300 mg Tablet 150 mg PO DAILY Qty: 30 0RF escitalopram oxalate 10 mg Tablet 10 mg PO DAILY Qty: 30 0RF aripiprazole [Abilify] 5 mg Tablet 5 mg PO DAILY Qty: 30 0RF bupropion HCl 300 mg Tablet Extended Release 24 Hr 300 mg PO DAILY Qty: 30 0RF Eliquis 5 mg Tablet 5 mg PO BID Qty: 60 0RF cyanocobalamin (vitamin B-12) 500 mcg tablet, sublingual 500 mcg sublingual DAILY Qty: 30 0RF Continued docusate sodium 250 mg Capsule 250 mg PO BID PRN (Reason: Constipation) aripiprazole 5 mg tablet 5 mg PO DAILY Discontinued allopurinol 300 mg tablet 150 mg PO DAILY diazepam 5 mg tablet 5 mg PO DAILY PRN (Reason: Sleep) bupropion HCl 300 mg tablet extended release 24 hr 300 mg PO DAILY ropinirole 1 mg tablet 1 mg PO BEDTIME PRN (Reason: Restless Leg(S)) hydrochlorothiazide 50 mg tablet 50 mg PO DAILY propranolol 60 mg capsule,extended release 24 hr 60 mg PO DAILY famotidine 20 mg tablet 20 mg PO BID Discharge Orders: Discharge Order (Routine); Ordered 09/08/24 Ordered By: iNkki Mariscal Diet: Regular diet Activity on Discharge: Use cane or walker Stand Alone Forms: Patient Portal Discharge page, Community Support Print Language: Angolan Care Plan Goals: 1. maintain mood 2. no SI/HI. Health Concerns: Follow up with PCP- routine care. Low B12, given cyanocobalamin 1000mgc IM q weekly x 2, transition to oral form 500mcg po daily. Plan of Treatment: 1. Take medications as prescribed 2. Go to nearest ED or call 911 in event of emergency Assessment: Pt with brighter, non labile. No SI/HI. No overt psychosis or delusions. Sleeping and eating well. Discharge Date/Time: 09/08/24 10:30
[2024-09-08 09:18] VITALS: BP 140/83
[2024-09-08] MEDS: Propranolol HCL LA 60 MG CAP.SA.24H PO (09:18)
[2024-09-08 09:19] VITALS: BP 140/83
[2024-09-08] MEDS: buPROPion HCl XL 300 MG TAB.ER.24H PO (09:19)
== END 2024-09-08 10:30 | disposition home or self-care (01) | DRG 885 ==
LOC: HO.ED 19:43 → HO.PGERI 08-30 11:40
PROVIDERS: Admitting Provider Social Worker; Emergency Provider Emergency Medicine; PCP Family Medicine; Visit Provider Social Worker
DX: F33.1 Major depressive disorder, recurrent, moderate (principal); I44.2 Atrioventricular block, complete; T42.4X2A Poisoning by benzodiazepines, intentional self-harm, initial encounter; I48.0 Paroxysmal atrial fibrillation; Z87.891 Personal history of nicotine dependence; Z95.0 Presence of cardiac pacemaker; Z79.01 Long term (current) use of anticoagulants; Z79.899 Other long term (current) drug therapy
CPT/HCPCS: 36415; 70450; 80053; 80061; 80143; 80179; 80307; 81003; 82306; 82607; 82746; 82947; 83036; 83540; 83735; 84443; 85025; 93005; 97116; 97162; 97530; 99285; J3420; S9485

== ENCOUNTER → 2024-08-29 11:16 | Outpatient (BNV) | payer MEDICARE, OTHER, SELFPAY | PROVIDERS: Emergency Provider Emergency Medicine; PCP Family Medicine; Visit Provider Internal Medicine Cardiovascular Disease | DX: R94.31 Abnormal electrocardiogram [ECG] [EKG] (principal); Z95.0 Presence of cardiac pacemaker | CPT/HCPCS: 93010 ==

== ENCOUNTER → 2024-08-29 14:20 | Outpatient (BNV) | payer MEDICARE, OTHER, SELFPAY | PROVIDERS: Emergency Provider Emergency Medicine; PCP Family Medicine; Visit Provider Radiology Diagnostic Radiology | DX: I67.89 Other cerebrovascular disease (principal); G93.89 Other specified disorders of brain; I70.90 Unspecified atherosclerosis | CPT/HCPCS: 70450 ==

== ENCOUNTER 2024-08-30 11:18 | Outpatient (BNV) | payer MEDICARE, OTHER, SELFPAY | END 2024-09-01 09:39 | PROVIDERS: Admitting Provider Social Worker; Emergency Provider Emergency Medicine; PCP Family Medicine; Visit Provider Radiology Diagnostic Radiology | DX: Z03.89 Encounter for observation for other suspected diseases and conditions ruled out (principal); W19.XXXA Unspecified fall, initial encounter | CPT/HCPCS: 70450 ==

== ENCOUNTER → 2024-08-30 11:18 | Outpatient (BNV) | payer MEDICARE, OTHER, SELFPAY | PROVIDERS: Admitting Provider Social Worker; Emergency Provider Emergency Medicine; PCP Family Medicine; Visit Provider Nurse Practitioner Family | DX: R29.6 Repeated falls (principal) | CPT/HCPCS: 99221; 99231 ==

== ENCOUNTER → 2024-08-30 11:18 | Outpatient (BNV) | payer MEDICARE, OTHER, SELFPAY | PROVIDERS: Admitting Provider Social Worker; Emergency Provider Emergency Medicine; PCP Family Medicine; Visit Provider Social Worker | DX: F33.2 Major depressive disorder, recurrent severe without psychotic features (principal) | CPT/HCPCS: 90792; 99231; 99232 ==